=== PATIENT | male | born 1965 | race Caucasian/White ===

== ENCOUNTER → 2018-03-20 14:43 | Outpatient (CLI) | payer OTHER, SELFPAY ==
--- NOTE | 2018-03-20 14:50 | XR_ITS ---
XR foot LT min 3V HISTORY: Posttraumatic pain ITS.REASON: S/P TRAUMA TO LT FOOT ORDERING PHYSICIAN: Santi Chaves PATIENT AGE: 52 years COMPARISON: None FINDINGS: No fracture or dislocation. No lytic or blastic change. There is normal mineralization.. The joint spaces are well-preserved. No significant degenerative/arthritic changes. No erosive changes evident. IMPRESSION: Negative, no acute finding
== END ==
PROVIDERS: PCP Internal Medicine; Visit Provider Internal Medicine
DX: M79.672 Pain in left foot (principal)
CPT/HCPCS: 73630

== ENCOUNTER → 2018-03-23 11:13 | Outpatient (CLI) | payer OTHER, SELFPAY ==
--- NOTE | 2018-03-23 11:14 | XR_ITS ---
XR foot wt bearing LT 3V HISTORY: ITS.REASON: pain ORDERING PHYSICIAN: Keeley Solorio DPM PATIENT AGE: 52 years COMPARISON: 04/25/2012 FINDINGS: No fracture or dislocation. No lytic or blastic change. There is normal mineralization.. The joint spaces are well-preserved. No significant degenerative/arthritic changes. No erosive changes evident. IMPRESSION: Negative, no acute finding
--- NOTE | 2018-03-23 11:14 | XR_ITS ---
XR foot wt bearing RT 3V HISTORY: ITS.REASON: Pain ORDERING PHYSICIAN: Keeley Solorio DPM PATIENT AGE: 52 years COMPARISON: None FINDINGS: No fracture or dislocation. No lytic or blastic change. There is normal mineralization.. The joint spaces are well-preserved. No significant degenerative/arthritic changes. No erosive changes evident. IMPRESSION: Negative, no acute finding
== END ==
PROVIDERS: Visit Provider Podiatrist
DX: M79.671 Pain in right foot (principal); M79.672 Pain in left foot
CPT/HCPCS: 73630

== ENCOUNTER → 2018-04-20 10:44 | Outpatient (CLI) | payer OTHER, SELFPAY ==
--- NOTE | 2018-04-20 10:50 | MR_ITS ---
MR foot LT wo/w con HISTORY: Posttraumatic pain along the plantar surface and second metatarsal area with limited range of motion ITS.REASON: foot pain ORDERING PHYSICIAN: Keeley Solorio DPM PATIENT AGE: 52 years Comparison: 03/23/2018 TECHNIQUE: Standard multiplanar multiecho sequences are performed without and with gadolinium enhancement. FINDINGS: No obvious fracture or dislocation of the metatarsals. No bone marrow edema within the metatarsals. There is a faint linear hypointensity within the distal aspect of the proximal phalanx of the great toe which could represent nondisplaced fracture. Partial volume averaging artifact is also a consideration. Please correlate with physical exam. Signal alteration is present in the subcortical region of the calcaneus at the posterior subtalar joint region hypointense on T1 and hyperintense on T2. There is some cortical irregularity at this region. The joint spaces preserved with no significant bony spurring. The plantar aponeurosis has an unremarkable appearance with no evidence of plantar fasciitis. IMPRESSION: 1. Possible nondisplaced fracture of the distal aspect of the proximal phalanx of the great toe. Please correlate with physical exam as this could be due to partial volume averaging artifact 2. Abnormal signal intensity involving the calcaneus at the posterior subtalar joint with some cortical irregularity. May be related to an area of osteonecrosis/osteochondrosis dissecans. 3. No obvious ligamentous or tendinous injuries
== END ==
PROVIDERS: Family Provider Internal Medicine; PCP Internal Medicine; Visit Provider Podiatrist
DX: S93.622A Sprain of tarsometatarsal ligament of left foot, initial encounter (principal); S96.912A Strain of unspecified muscle and tendon at ankle and foot level, left foot, initial encounter; S99.922A Unspecified injury of left foot, initial encounter
CPT/HCPCS: 73720; A9576

== ENCOUNTER → 2019-02-26 10:26 | Outpatient (POV) | payer MEDICAID, SELFPAY | PROVIDERS: Visit Provider Otolaryngology | DX: Z00.00 Encounter for general adult medical examination without abnormal findings (principal) ==

== ENCOUNTER → 2019-03-05 08:52 | Outpatient (CLI) | payer MEDICAID, SELFPAY ==
--- NOTE | 2019-03-05 08:56 | CT_ITS ---
CT sinus wo con CLINICAL INDICATION: ITS.REASON: NASAL SEPTAL SPUR ORDERING PHYSICIAN: Janneth Roberto MD PATIENT AGE: 53 years COMPARISON: None TECHNIQUE:Axial images obtained with sagittal and coronal reformats. All CT scans at the facility use one or more dose reduction, viz: automated exposure control, ma/kV adjustment per patient size (including targeted exams where dose is matched to indication, i.e. head), or iterative reconstruction technique. FINDINGS: Paranasal sinuses appear to be normally developed and are clear except for very mild mucosal thickening along the roof of both maxillary sinuses. There are very small bilateral ethmoid Kevin's air cells which are new very mild narrowing of the infundibular areas. There is convex curvature toward the right involving the nasal septum of approximately 115 degrees with a right-sided septal spur measuring 6.2 mm extending from the septum to the lateral nasal cavity wall at the middle meatus. This narrows the right nasal cavity in this location. The remainder of the nasal terminates appear to be intact. Osseous structures are intact. Surrounding soft tissues appear normal. Impression: Minimal mucosal thickening along the roof of both maxillary sinuses. Very small ethmoid Kevin's air cells bilaterally with only mild infundibular narrowing. Subtle curvature with a right-sided septal spur as discussed above.
== END ==
PROVIDERS: PCP Internal Medicine; Visit Provider Otolaryngology
DX: J34.89 Other specified disorders of nose and nasal sinuses (principal)
CPT/HCPCS: 70486

== ENCOUNTER → 2019-04-02 11:10 | Outpatient (POV) | payer MEDICAID, SELFPAY | PROVIDERS: Visit Provider Otolaryngology | DX: Z00.00 Encounter for general adult medical examination without abnormal findings (principal) ==

== ENCOUNTER → 2019-08-12 15:32 | Outpatient (CLI) | payer OTHER, SELFPAY ==
--- NOTE | 2019-08-12 15:39 | XR_ITS ---
PROCEDURE: XR FOOT LT MIN 3V CLINICAL INDICATION: LT FOOT INJURY COMPARISON: No exams were available for comparison FINDINGS: No fracture or dislocation. No lytic or blastic change. There is normal mineralization. The joint spaces are well-preserved. No significant degenerative/arthritic changes. No erosive changes evident. There is mild diffuse soft tissue swelling of the forefoot dorsally. There are no foreign bodies. Other findings:None. IMPRESSION: Mild soft tissue injury, no fracture seen Dictated by: Dr. Jovani Richter MD 08/12/2019 16:[address] Jovani Richter MD in [place] 08/12/2019 16:04
== END ==
PROVIDERS: PCP Internal Medicine; Visit Provider Internal Medicine
DX: M79.672 Pain in left foot (principal)
CPT/HCPCS: 73630

== ENCOUNTER → 2019-08-28 11:18 | Outpatient (CLI) | payer OTHER, SELFPAY ==
--- NOTE | 2019-08-28 11:23 | XR_ITS ---
PROCEDURE: XR FOOT LT MIN 3V CLINICAL INDICATION: FOOT PAIN Dropped a tractor weight on foot 1st metatarsal pain COMPARISON: [id number] XR foot LT min 3V from 03/20/2018 [id number] XR foot wt bearing LT 3V from 03/23/2018 [id number] XR foot wt bearing RT 3V from 03/23/2018 XR FOOT LT MIN 3V from 08/12/2019 FINDINGS: There is a nondisplaced transverse type fracture through the 1st metatarsal. The joint spaces are well-preserved. No significant degenerative/arthritic changes. No erosive changes evident. Other findings:None. IMPRESSION: Nondisplaced fracture through mid shaft 1st metatarsal. Dictated by: Ramana Lopez 08/28/2019 11:39 Electronically signed by Ramana Lopez in [place] 08/28/2019 11:39
== END ==
PROVIDERS: PCP Internal Medicine; Visit Provider Internal Medicine
DX: S90.32XD Contusion of left foot, subsequent encounter (principal)
CPT/HCPCS: 73630

== ENCOUNTER → 2019-09-16 12:55 | Outpatient (CLI) | payer OTHER, SELFPAY ==
--- NOTE | 2019-09-16 13:10 | XR_ITS ---
PROCEDURE: XR FOOT WT BEARING LT 3V CLINICAL INDICATION: fracture follow up Follow-up fracture, pain COMPARISON: [id number] XR foot wt bearing LT 3V from 03/23/2018 [id number] XR foot wt bearing RT 3V from 03/23/2018 XR FOOT LT MIN 3V from 08/12/2019 XR FOOT LT MIN 3V from 08/28/2019 FINDINGS: There is a healing mid shaft fracture involving the 1st metatarsal with developing callus formation. Fracture is nondisplaced. No other significant anomalies. Other findings:None. IMPRESSION: Healing nondisplaced midshaft 1st metatarsal fracture Dictated by: Josiah Shirley MD 09/16/2019 14:50 Electronically signed by Josiah Shirley MD in [place] 09/16/2019 14:50
== END ==
PROVIDERS: PCP Internal Medicine; Visit Provider Podiatrist
DX: S92.315D Nondisplaced fracture of first metatarsal bone, left foot, subsequent encounter for fracture with routine healing (principal); T14.8XXA Other injury of unspecified body region, initial encounter
CPT/HCPCS: 73630

== ENCOUNTER → 2019-10-08 13:55 | Outpatient (CLI) | payer OTHER, SELFPAY ==
--- NOTE | 2019-10-08 14:17 | ECG_ITS ---
APPROVED REPORT Exam: Resting ECG HR:76 bpm ECG Measurements Heart Rate 76 AXES GA 142 P 62 QRSd 94 QRS 64 QT 374 T 31 QTc 420 <Conclusion> Normal sinus rhythm Normal ECG Electronically signed by : Zeyad Hendrix, 10/09/2019 16:11:40
[2019-10-08 14:21] LABS: Basophils # 0.1 K/mm3 (0-0.2); Basophils % 0.6 % (0.1-2.0); Eosinophils # 0.2 K/mm3 (0.0-0.4); Eosinophils % 2.7 % (0.1-12.0); Hematocrit 42.9 % (42.0-52.0); Hemoglobin 14.9 g/dL (14.1-18.0); Lymphocytes # 1.3 K/mm3 (0.7-4.5); Lymphocytes % 15.4 % (10-50); Mean Corpuscular HGB Conc 34.8 g/dL (31.8-35.4); Mean Corpuscular Hemoglobin 33.6 pg (27.0-31.2); Mean Corpuscular Volume 96.8 fl (80-94); Mean Platelet Volume 7.2 fl (7.4-10.4); Monocytes # 0.5 K/mm3 (0.1-1.0); Monocytes % 5.9 % (1.7-9.3); Neutrophils # 6.3 K/mm3 (1.8-7.8); Neutrophils % 75.6 % (37.0-80.0); Platelet Count 237 K/mm3 (142-424); Red Blood Count 4.44 M/mm3 (4.60-6.20); Red Cell Distribution Width 12.4 % (11.5-17.5); White Blood Count 8.4 K/mm3 (4.8-10.8)
[2019-10-08 15:36] LABS: Anion Gap 12.9 mEq/L (5-15); Blood Urea Nitrogen 15 mg/dl (9-20); Calcium 9.8 mg/dl (8.4-10.2); Carbon Dioxide 23 mmol/L (22.0-30.0); Chloride 102 mmol/L (98-107); Estimated Glomerular Filt Rate 117 ml/min (>60); GFR (African American) 141 ML/MIN (>60); Glucose 105 mg/dl (74-100); Potassium 3.9 mmoL/L (3.5-5.1); Sodium 134 mmol/L (136-145)
== END ==
PROVIDERS: Visit Provider Otolaryngology
DX: Z01.818 Encounter for other preprocedural examination (principal); J34.2 Deviated nasal septum; J34.89 Other specified disorders of nose and nasal sinuses; M95.0 Acquired deformity of nose
CPT/HCPCS: 36415; 80048; 85025; 93005

== ENCOUNTER → 2019-10-17 10:45 | Outpatient (CLI) | payer OTHER, SELFPAY ==
--- NOTE | 2019-10-17 10:51 | XR_ITS ---
PROCEDURE: XR FOOT WT BEARING LT 3V CLINICAL INDICATION: fracture follow-up Follow-up fracture COMPARISON: [id number] XR foot wt bearing LT 3V from 03/23/2018 XR FOOT LT MIN 3V from 08/12/2019 XR FOOT LT MIN 3V from 08/28/2019 XR FOOT WT BEARING LT 3V from 09/16/2019 FINDINGS: No change nondisplaced fracture involving the mid shaft of the 1st metatarsal with developing callus formation which may have slightly increased. The joint spaces are well-preserved. No significant degenerative/arthritic changes. No erosive changes evident. Other findings:Osteopenia is present at the 1st MTP joint IMPRESSION: Healing left 1st metatarsal fracture with slight increase in callus formation Dictated by: Josiah Shirley MD 10/17/2019 16:04 Electronically signed by Josiah Shirley MD in [place] 10/17/2019 16:04
== END ==
PROVIDERS: PCP Internal Medicine; Visit Provider Podiatrist
DX: S92.315D Nondisplaced fracture of first metatarsal bone, left foot, subsequent encounter for fracture with routine healing (principal)
CPT/HCPCS: 73630

== ENCOUNTER → 2022-04-25 13:11 | Outpatient (CLI) | payer OTHER, SELFPAY ==
--- NOTE | 2022-04-25 13:16 | XR_ITS ---
FINAL REPORT CLINICAL HISTORY: COUGH, former smoker FINDINGS: Two views of the chest were obtained. The heart size and pulmonary vascularity are within normal limits. The mediastinum is normal. There is medial right lung base opacity. There is no pneumothorax. The bony thorax is intact. IMPRESSION: Medial right base opacity could represent atelectasis or pneumonia. Reviewed, Interpreted and Dictated by Eric Oliva III, MD Transcribed by Placido Loaiza Authenticated and [facility]
== END ==
PROVIDERS: PCP Internal Medicine; Visit Provider Internal Medicine
DX: R05.8 Other specified cough (principal)
CPT/HCPCS: 71046

== ENCOUNTER → 2022-05-20 13:25 | Outpatient (CLI) | payer OTHER, SELFPAY ==
[2022-05-20 14:51] LABS: Basophils # 0.1 K/mm3 (0-0.2); Basophils % 1.1 % (0.1-2.0); Eosinophils # 0.2 K/mm3 (0.0-0.4); Eosinophils % 2.7 % (0.1-12.0); Hematocrit 42.6 % (42.0-52.0); Hemoglobin 14.5 g/dL (14.1-18.0); Lymphocytes # 1.3 K/mm3 (0.7-4.5); Lymphocytes % 17.5 % (10-50); Mean Corpuscular HGB Conc 33.9 g/dL (31.8-35.4); Mean Corpuscular Hemoglobin 33.1 pg (27.0-31.2); Mean Corpuscular Volume 97.7 fl (80-94); Mean Platelet Volume 8.1 fl (7.4-10.4); Monocytes # 0.6 K/mm3 (0.1-1.0); Monocytes % 8.4 % (1.7-9.3); Neutrophils # 5.1 K/mm3 (1.8-7.8); Neutrophils % 70.3 % (37.0-80.0); Platelet Count 524 K/mm3 (142-424); Red Blood Count 4.36 M/mm3 (4.60-6.20); Red Cell Distribution Width 12.8 % (11.5-17.5); White Blood Count 7.2 K/mm3 (4.8-10.8)
[2022-05-20 15:12] LABS: Chloride 106 mmol/L (98-107)
[2022-05-20 15:13] LABS: Potassium 4.6 mmoL/L (3.5-5.1); Sodium 141 mmol/L (136-145)
[2022-05-20 15:15] LABS: Alanine Aminotransferase 25 U/L (12-78); Alkaline Phosphatase 58 U/L (38-126); Anion Gap 12.6 mEq/L (5-15); Aspartate Amino Transferase 41 U/L (17-59); Bilirubin,Total 0.3 mg/dl (0.2-1.3); Blood Urea Nitrogen 13 mg/dl (9-20); Carbon Dioxide 27 mmol/L (22.0-30.0); Cholesterol 187 mg/dl (140-200); Estimated Glomerular Filt Rate 138 ml/min (>60); GFR (African American) 167 ML/MIN (>60); Glucose 86 mg/dl (74-100); Triglycerides 125 mg/dl (30-150); VLDL Cholesterol 25 mg/dL (0-40)
[2022-05-20 15:16] LABS: Albumin Level 3.7 g/dl (3.5-5.0); Albumin/Globulin Ratio 1.4 (1.1-1.8); Chol/HDL Ratio 6.2 (1-3.5); Globulin 2.7 g/dL (1.3-3.2); HDL Cholesterol 30 mg/dl (40-60); Total Protein,Serum 6.4 g/dl (6.3-8.2)
[2022-05-20 15:27] LABS: Direct LDL Cholesterol 119.65 mg/dL (100-129)
[2022-05-20 16:27] LABS: Uric Acid 5.5 mg/dl (3.5-8.5)
[2022-05-20 16:59] LABS: Prostate Specific Ag Screen 2.4 ng/ml (0.0-4.0)
== END ==
PROVIDERS: PCP Internal Medicine; Visit Provider Internal Medicine
DX: R06.02 Shortness of breath (principal); E78.5 Hyperlipidemia, unspecified; M10.9 Gout, unspecified; Z85.71 Personal history of Hodgkin lymphoma; Z12.5 Encounter for screening for malignant neoplasm of prostate
CPT/HCPCS: 36415; 80053; 80061; 84550; 85025; G0103

== ENCOUNTER → 2022-06-01 11:11 | Outpatient (CLI) | payer OTHER, SELFPAY ==
--- NOTE | 2022-06-01 11:16 | XR_ITS ---
PROCEDURE INFORMATION: Exam: XR Chest Exam date and time: 06/01/2022 11:19 AM Age: 56 years old Clinical indication: Other: F/u pneumonia, recent covid; Additional info: Pneumonia follow up/recent covid TECHNIQUE: Imaging protocol: Radiologic exam of the chest. Views: 2 views. COMPARISON: CR XR CHEST 2V 04/25/2022 1:23 PM FINDINGS: Lungs: Persistent right lower lobe airspace disease, similar to slightly worsened from 04/25/2022. Pleural spaces: Unremarkable. No pleural effusion. No pneumothorax. Heart/Mediastinum: Unremarkable. No cardiomegaly. Bones/joints: Unremarkable. IMPRESSION: Persistent right lower lobe airspace disease, similar to slightly worsened from 04/25/2022. Given persistence over this length of time, chest CT is recommended for further evaluation.
== END ==
PROVIDERS: PCP Internal Medicine; Visit Provider Internal Medicine
DX: J18.9 Pneumonia, unspecified organism (principal); U09.9 Post COVID-19 condition, unspecified
CPT/HCPCS: 71046

== ENCOUNTER → 2022-06-23 13:20 | Outpatient (CLI) | payer OTHER, SELFPAY ==
--- NOTE | 2022-06-23 13:23 | CT_ITS ---
FINAL REPORT CLINICAL HISTORY: COVID 19 X 6 WKS AGO, PNEUMONIA FINDINGS: Axial images were obtained from the lung apex to the mid abdomen by computed tomography. Coronal reformatted images were obtained. This study was performed with techniques to keep radiation doses as low as reasonably achievable, (ALARA). Individualized dose reduction techniques using automated exposure control or adjustment of mA and/or kV according to the patient's size were employed. There is no axillary adenopathy. There is a calcified right paratracheal lymph node. Heart size is normal. There is no pericardial or pleural effusion. Limited images of the upper abdomen are unremarkable. There is patchy airspace opacity in the anterior left upper lobe. There is dense consolidation in the medial right lower lobe. IMPRESSION: Dense medial right lower lobe consolidation consistent with acute pneumonia probably related to known COVID. Reviewed, Interpreted and Dictated by West Shanks MD Transcribed by Placido Loaiza Authenticated and [facility]
== END ==
PROVIDERS: PCP Internal Medicine; Visit Provider Internal Medicine
DX: U09.9 Post COVID-19 condition, unspecified (principal)
CPT/HCPCS: 71250

== ENCOUNTER → 2022-07-21 14:27 | Outpatient (CLI) | payer OTHER, SELFPAY ==
[2022-07-23 20:40] LABS: QuantiFERON-TB Gold Plus Negative (Negative)
[2022-07-27 22:12] LABS: Aspergillus flavus Negative (Neg:<1:1); Aspergillus fumigatus Negative (Neg:<1:1); Aspergillus niger Negative (Neg:<1:1); Blastomyces Antibody Negative (Neg:<1:1)
== END ==
PROVIDERS: PCP Internal Medicine; Visit Provider Internal Medicine Pulmonary Disease
DX: R06.09 Other forms of dyspnea (principal); J84.10 Pulmonary fibrosis, unspecified; R91.8 Other nonspecific abnormal finding of lung field
CPT/HCPCS: 36415; 86140; 86480; 86606; 86612

== ENCOUNTER → 2022-07-22 10:10 | Outpatient (CLI) | payer OTHER, SELFPAY | PROVIDERS: PCP Internal Medicine; Visit Provider Internal Medicine Pulmonary Disease | DX: J18.9 Pneumonia, unspecified organism (principal); B96.89 Other specified bacterial agents as the cause of diseases classified elsewhere | CPT/HCPCS: 87070; 87077; 87116; 87186; 87205; 87206; 87220 ==

== ENCOUNTER → 2022-08-08 13:02 | Outpatient (CLI) | payer OTHER, SELFPAY | PROVIDERS: PCP Internal Medicine; Visit Provider Internal Medicine Pulmonary Disease | DX: R06.09 Other forms of dyspnea (principal) | CPT/HCPCS: 94060; 94618; 94727; 94729 ==

== ENCOUNTER → 2022-10-04 15:13 | Outpatient (CLI) | payer OTHER, SELFPAY ==
--- NOTE | 2022-10-04 15:13 | CT_ITS ---
FINAL REPORT CLINICAL HISTORY: lung cancer screening, smoker for 27 years less than a pack a day COMPARISON: 06/23/2022 FINDINGS: Low-Dose Chest CT Axial images were obtained from the lung apex to the mid abdomen by computed tomography. Low-dose protocol was utilized. CTDI vol (mGy): 2.90 DLP (mGy-cm): 101.07 There is no axillary adenopathy. There is no hilar or mediastinal adenopathy. The heart is proper size. There is no pericardial or pleural effusion. Lung window images demonstrate persistent widespread pulmonary opacities consistent bilateral pneumonia. Much of it is stable however there is an area in the left lower lobe which is worse. There is a large area of consolidation in the right lower lobe. There is mild pulmonary scarring. Limited images of the upper abdomen are unremarkable. IMPRESSION: Widespread pulmonary opacities that are most likely inflammatory. Lung RADS category 0. Recommend 3 month follow-up low-dose chest CT. Reviewed, Interpreted and Dictated by Eric Oliva III, MD Transcribed by Anisha Niño Authenticated and [facility]
== END ==
PROVIDERS: PCP Internal Medicine; Visit Provider Internal Medicine Pulmonary Disease
DX: Z87.891 Personal history of nicotine dependence (principal); Z12.2 Encounter for screening for malignant neoplasm of respiratory organs
CPT/HCPCS: 71271

== ENCOUNTER 2022-10-10 09:05 | Day surgery (SDC) | payer OTHER, SELFPAY ==
[2022-10-10] VITALS (11 sets, daily range): BP systolic 123–164; BP diastolic 65–98; PULSE 83–100; RESP 14–18; TEMP 36.3–36.8; O2SAT 90–95; BMI 20.7
--- NOTE | 2022-10-10 10:22 | P.PN_ITS ---
[facility] Disclaimer: The information contained in this section may have been updated after the patient was seen, as this information can be updated by other users. Medical History (Updated 10/10/22 @ 09:26 by Clifton Lu RN) Allergic rhinitis Anxiety Atypical pneumonia Dyspnea on exertion History of 2019 novel coronavirus disease (COVID-19) History of smoking 30 or more pack years Hodgkins disease IBS (irritable bowel syndrome) ILD (interstitial lung disease) Legionella infection Multiple lung nodules on CT Multiple lung nodules on CT Pneumonia Pulmonary emphysema Restrictive lung disease Screening for lung cancer Unresolved pneumonia Surgical History (Updated 10/10/22 @ 09:25 by Clifton Lu RN) H/O nasal septoplasty Hx of lymph node excision Hx of wisdom tooth extraction Family History Other COPD (chronic obstructive pulmonary disease) Emphysema of lung Social History (Updated 10/10/22 @ 09:27 by Clifton Lu RN) Smoking Status: Former smoker smoking status stop date: 2009 second hand exposure: No alcohol intake: never substance use type: denies use current occupational status: employed Travel in the last 8 weeks: None household members: spouse housing: house current occupation: pet store current occupational exposures/hazards: No caffeine: Yes [facility] Anesthesia Checklist Patient Identification Patient Identification: Verbal (Name & ) Structural Data Admitted From: Home Planned Operative Procedure/s: bronchoscopy Consent for Planned Operative Procedure(s) Verified: Yes NPO Status Verified Time NPO: 00:00 Additional verifications Anesthesia Reactions: No Hx Blood Transfusions: Yes Blood Transfusion Reaction: No Airway Assessment C-Spine Mobility Assessed: Yes TMJ Mobility Assessed: Yes Dentition: Good Dentition Neurological Assessment Level of Consciousness: Awake, Alert and Appropriate Anesthesia Plan Anesthesia Risk discussed: Yes Anesthesia Plan: Verified ASA Class: III Anesthesia Type: General
--- NOTE | 2022-10-10 12:42 | P.PCN_ITS ---
Procedure: Date: 10/10/22 Patient Date of :: 1965 Procedure Performed:: Bronchoscopy with airway examination, bronchoalveolar lavage and transbronchial lung biopsy Indications:: Nonresolving pneumonia Performing Provider:: Benny Rosado MD Referring Provider:: Dr:Santi Flores MD Sedation:: General anesthesia Procedure:: Bronchoscopy airway examination, bronchoalveolar lavage and transbronchial lung biopsy: A clean DIAGNOSTIC bronchoscopy was advanced through the ET tube and airways were examined up to subsegmental bronchi. Airways appeared grossly normal, no evidence of mucoid secretions, mucous plugging active bleeding/old blood clots noted. Questionable endobronchial lesion was noted at left upper lobe bronchi concerning for pulsating mass no biopsies were attempted. Bronchoalveolar lavage was performed in the RIGHT LOWER LOBE with instillation of 60 cc normal saline with return of turbid non-bloody 30 cc fluid back. BAL fluid was sent for cell count and differential along with bacterial fungal and AFB stain and cultures. Bronchoalveolar lavage was also performed in the LEFT UPPER LOBE with instillation of 60 cc normal saline with return of 35 cc turbid non-bloody fluid back. BAL fluid was sent for cell count and differential along with bacterial fungal and AFB stain and cultures. Both the right lower lobe and left upper lobe lavage specimens were sent separately. BAL fluid were also sent for cytopathologic examination separately. Transbronchial biopsy was performed in the LEFT UPPER LOBE with a total of 8 biopsies performed, 6 biopsy specimens were sent in formalin for cytopathologic examination. The other 2 biopsy samples, were sent one each in two separate normal saline specimen cups for bacterial fungal and AFB stain cultures. Speci al request was also made for the pathologist to evaluate for AFB and fungal organisms on the cytopathologic examination. Patient tolerated the procedure with no acute immediate complications. We will follow the patient in pulmonary clinic in 7 to 10 days. Findings:: Please see the procedure note Recommendations:: Please see the procedure note. Follow in pulmonary clinic in 7 to 10 days Complications:: No acute immediate complications. Chest x-ray pending. Estimated blood obtained (mL): 5
--- NOTE | 2022-10-10 12:47 | P.PNANES_ITS ---
[facility] Anesthesia Record Part I Anesthesia Record I Intake, IV Amount: 500 Estimated blood loss (mL): 10 Urine output (mL): 0 Blood Pressure: 123/70 SaO2: 92 Pulse Rate: 86 Respiratory Rate: 14 Temperature: 97.4 F Patient is:: Drowsy, Nasal O2 and Stable Stable to PACU at:: 12:43
--- NOTE | 2022-10-10 12:51 | XR_ITS ---
FINAL REPORT CLINICAL HISTORY: BRONCH IN OR, ft 4:36 FINDINGS: FLUORO TIME PROCEDURE: Fluoroscopy in the operating room. FINDINGS: Fluoroscopy time was provided by the radiology department for the clinical service. No films were saved. Fluoroscopy exposure time: 4:36 minutes IMPRESSION: See above Reviewed, Interpreted and Dictated by Leslie Raya MD Transcribed by Anisha Niño Authenticated and [facility]
--- NOTE | 2022-10-10 13:00 | XR_ITS ---
FINAL REPORT TECHNIQUE: Single view chest CLINICAL HISTORY: POST BRONCH COMPARISON: 06/01/2022 FINDINGS: A single view of the chest was obtained. The heart and mediastinum are within normal limits. There is new, patchy opacity in the right lung. Right infrahilar opacity is unchanged. There is no pneumothorax following bronchoscopy. Osseous structures are unremarkable. IMPRESSION: New, patchy right lung opacity. No pneumothorax following bronchoscopy. Reviewed, Interpreted and Dictated by Leslie Raya MD Transcribed by Areli Shepard Authenticated and [facility]
--- NOTE | 2022-10-10 13:57 | EXP.ANES.II ---
[facility] Anesthesia Record Part II Anesthesia Record Part II Discharge Time: 13:10 Destination: Surgical Day Care (OP Surgery) PACU nurse assessment reviewed?: Yes Patient Condition:: Good Anesthesia Complications:: None Swallowing reflex intact?: Yes Cyanosis?: No Blood Pressure: 164/65 Pulse Rate: 100 Temperature: 98 F Mental Status: Alert & Oriented Pain level:: 0 Nausea and/or vomitting:: None Intake, IV Amount: 0
== END 2022-10-10 14:05 | disposition home or self-care (01) ==
PROVIDERS: PCP Internal Medicine; Visit Provider Internal Medicine Pulmonary Disease
PROC: (CPT 31624; principal; 2022-10-10 10:15)
DX: J18.9 Pneumonia, unspecified organism (principal); Z86.16 Personal history of COVID-19; R91.8 Other nonspecific abnormal finding of lung field; Z87.891 Personal history of nicotine dependence; Z85.72 Personal history of non-Hodgkin lymphomas; J43.8 Other emphysema; J84.89 Other specified interstitial pulmonary diseases; Z79.899 Other long term (current) drug therapy; D49.1 Neoplasm of unspecified behavior of respiratory system
CPT/HCPCS: 31624; 31628; 71045; 76000; 87070; 87102; 87116; 87186; 87205; 87206; 89051; J2405

== ENCOUNTER → 2022-10-17 14:48 | Outpatient (CLI) | payer OTHER, SELFPAY ==
--- NOTE | 2022-10-17 14:55 | XR_ITS ---
FINAL REPORT CLINICAL HISTORY: interstitial lung disease COMPARISON: 10/10/2022 FINDINGS: Two views of the chest were obtained. The heart size and pulmonary vascularity are within normal limits. The mediastinum is normal. Worsening bilateral pulmonary opacities are consistent with worsening pneumonia. There is no pneumothorax. The bony thorax is intact. IMPRESSION: Worsening bilateral pneumonia. Reviewed, Interpreted and Dictated by Eric Oliva III, MD Transcribed by Alexia Dial Authenticated and . [facility]
[2022-10-17 16:19] LABS: Erythrocyte Sedimentation Rate 29 mm/hr (0-20)
[2022-10-17 16:23] LABS: Uric Acid 7.9 mg/dl (3.5-8.5)
[2022-10-17 16:28] LABS: C-Reactive Protein 13.2 mg/L (0-4)
[2022-10-19 08:15] LABS: RA Latex Turbid. <10.0 IU/mL (<14.0)
[2022-10-19 13:12] LABS: Anti-Cyclic Citrullinated Pept 5 units (0-19); Antinuclear Antibodies, IFA Negative (.)
[2022-10-19 16:14] LABS: Anti-DNA (DS) Ab Qn 1 IU/mL (0-9); Anti-Jo-1 <0.2 AI (0.0-0.9); Antiscleroderma-70 Antibodies <0.2 AI (0.0-0.9); Cytoplasmic (C-ANCA) <1:20 titer (Neg:<1:20); Perinuclear (P-ANCA) <1:20 titer (Neg:<1:20); Sjogren's Anti-SS-A <0.2 AI (0.0-0.9); Sjogren's Anti-SS-B 0.7 AI (0.0-0.9); Smith/RNP Antibodies <0.2 AI (0.0-0.9)
[2022-10-20 15:04] LABS: Strongyloides IgG Antibody Negative (Negative)
[2022-10-22 02:25] LABS: Antinuclear Antibodies (ANA) Negative
[2022-11-03 23:17] LABS: Aspergillus fumigatus IgG NEGATIVE; Pigeon Serum Abs NEGATIVE
== END ==
PROVIDERS: PCP Internal Medicine; Visit Provider Internal Medicine Pulmonary Disease
DX: R06.09 Other forms of dyspnea (principal); R06.02 Shortness of breath; J84.9 Interstitial pulmonary disease, unspecified; J84.10 Pulmonary fibrosis, unspecified; D72.19 Other eosinophilia
CPT/HCPCS: 36415; 71046; 84550; 85651; 86038; 86140; 86200; 86225; 86235; 86256; 86331; 86431; 86602; 86606; 86609; 86682

== ENCOUNTER → 2022-11-01 11:32 | Outpatient (CLI) | payer OTHER, SELFPAY ==
--- NOTE | 2022-11-01 11:36 | XR_ITS ---
FINAL REPORT TECHNIQUE: Chest PA & Lateral CLINICAL HISTORY: PNM COMPARISON: October 17, 2022 FINDINGS: 2 views of the chest were performed. The heart size is normal. The mediastinum is within normal limits. There are bibasilar airspace infiltrates, left greater than right. There are no pleural effusions. There is no pneumothorax. The bony thorax appears intact. IMPRESSION: Bibasilar airspace infiltrates similar to slightly improved. Findings may represent slow resolving pneumonia. Recommend follow-up. Reviewed, Interpreted and Dictated by West Shanks MD Transcribed by Placido Loaiza Authenticated and [facility]
== END ==
PROVIDERS: PCP Internal Medicine; Visit Provider Internal Medicine Pulmonary Disease
DX: R06.02 Shortness of breath (principal)
CPT/HCPCS: 71046

== ENCOUNTER → 2022-11-30 14:51 | Outpatient (CLI) | payer OTHER, SELFPAY ==
--- NOTE | 2022-11-30 14:56 | XR_ITS ---
FINAL REPORT CLINICAL HISTORY: PNM COMPARISON: 11/01/2022 FINDINGS: Two views of the chest were obtained. The heart size and pulmonary vascularity are within normal limits. The mediastinum is normal. There are persistent bibasilar opacities consistent with bilateral pneumonia. There is no pneumothorax. The bony thorax is intact. IMPRESSION: Persistent bibasilar opacities consistent with bilateral pneumonia. These findings have progressed on the left since the prior exam. Reviewed, Interpreted and Dictated by Eric Oliva III, MD Transcribed by Anisha Niño Authenticated and . [facility]
== END ==
LOC: RAD 14:52
PROVIDERS: PCP Internal Medicine; Visit Provider Internal Medicine Pulmonary Disease
DX: R06.02 Shortness of breath (principal)
CPT/HCPCS: 71046

== ENCOUNTER → 2022-12-29 15:02 | Outpatient (CLI) | payer OTHER, SELFPAY ==
--- NOTE | 2022-12-29 15:03 | CT_ITS ---
FINAL REPORT TECHNIQUE: Axial CT images were performed from the lung apices through the upper abdomen. Coronal reformats were submitted. This study was performed with techniques to keep radiation doses as low as reasonably achievable (ALARA). Individualized dose reduction techniques using automated exposure control or adjustment of mA and/or kV according to the patient's size were employed. CLINICAL HISTORY: 3 mth F/U COMPARISON: 10/04/2022 FINDINGS: There is no axillary adenopathy. There is no hilar or mediastinal mass or adenopathy. Heart size is normal. There is no pericardial or pleural effusion. Limited images of the upper abdomen are unremarkable. There are worsening widespread pulmonary nodular and parenchymal opacities. There is right lower lobe consolidation, progressed somewhat since previous. Findings most likely represent infectious etiology, may represent mycobacterial/fungal diseases. IMPRESSION: Worsening pulmonary opacities and right lower lobe consolidation, most likely represent infectious etiology as detailed above. Reviewed, Interpreted and Dictated by Eric Oliva III, MD Transcribed by Delmy Barrera Authenticated and [facility]
== END ==
LOC: RAD 15:03
PROVIDERS: PCP Internal Medicine Pulmonary Disease; Visit Provider Internal Medicine Pulmonary Disease
DX: R91.8 Other nonspecific abnormal finding of lung field (principal)
CPT/HCPCS: 71250

== ENCOUNTER → 2023-01-06 10:14 | Outpatient (CLI) | payer OTHER, SELFPAY | LOC: LAB.DROPOF 10:17 | PROVIDERS: PCP Internal Medicine Pulmonary Disease; Visit Provider Internal Medicine Pulmonary Disease | DX: R06.09 Other forms of dyspnea (principal); R05.9 Cough, unspecified; R09.89 Other specified symptoms and signs involving the circulatory and respiratory systems | CPT/HCPCS: 87070; 87205 ==

== ENCOUNTER → 2023-01-07 12:38 | Outpatient (CLI) | payer OTHER, SELFPAY | LOC: LAB 12:40 | PROVIDERS: PCP Internal Medicine; Visit Provider Internal Medicine Pulmonary Disease | DX: R06.09 Other forms of dyspnea (principal); J84.9 Interstitial pulmonary disease, unspecified; R91.8 Other nonspecific abnormal finding of lung field; Z86.16 Personal history of COVID-19 | CPT/HCPCS: 87102; 87116; 87186; 87206 ==

== ENCOUNTER → 2023-01-08 15:32 | Outpatient (CLI) | payer OTHER, SELFPAY | PROVIDERS: PCP Internal Medicine Pulmonary Disease; Visit Provider Internal Medicine Pulmonary Disease | DX: R06.09 Other forms of dyspnea (principal); R05.9 Cough, unspecified ==

== ENCOUNTER → 2023-01-11 11:56 | Outpatient (CLI) | payer OTHER, SELFPAY ==
--- NOTE | 2023-01-11 12:03 | ECG_ITS ---
APPROVED REPORT Exam: Resting ECG HR:93 bpm ECG Measurements Heart Rate 93 AXES UT 130 P 40 QRSd 87 QRS 22 QT 325 T 9 QTc 376 Conclusion SINUS RHYTHM NORMAL ECG UNCONFIRMED REPORT Electronically signed by : Zeyad Hendrix MD 01/11/2023 17:32:47
== END ==
LOC: RT 11:57
PROVIDERS: PCP Internal Medicine; Visit Provider Internal Medicine Pulmonary Disease
DX: R06.09 Other forms of dyspnea (principal)
CPT/HCPCS: 93005

== ENCOUNTER 2023-01-23 10:01 | Day surgery (SDC) | payer OTHER, SELFPAY ==
[2023-01-19 14:47] VITALS: BMI 21.6
[2023-01-23] VITALS (12 sets, daily range): BP systolic 106–129; BP diastolic 61–80; PULSE 105–126; RESP 16–24; TEMP 36.1–43; O2SAT 91–94
[2023-01-23 10:54] LABS: Basophils # 0.1 K/mm3 (0-0.2); Basophils % 0.5 % (0.1-2.0); Eosinophils # 0.4 K/mm3 (0.0-0.4); Eosinophils % 3.2 % (0.1-12.0); Hematocrit 48.3 % (42.0-52.0); Hemoglobin 15.5 g/dL (14.1-18.0); Lymphocytes # 1.1 K/mm3 (0.7-4.5); Lymphocytes % 9.5 % (10-50); Mean Corpuscular HGB Conc 32.1 g/dL (31.8-35.4); Mean Corpuscular Hemoglobin 33.1 pg (27.0-31.2); Mean Platelet Volume 7.6 fl (7.4-10.4); Monocytes # 0.6 K/mm3 (0.1-1.0); Monocytes % 5.6 % (1.7-9.3); Neutrophils # 9.1 K/mm3 (1.8-7.8); Neutrophils % 81.4 % (37.0-80.0); Platelet Count 469 K/mm3 (142-424); Red Blood Count 4.69 M/mm3 (4.60-6.20); Red Cell Distribution Width 13.4 % (11.5-17.5); White Blood Count 11.1 K/mm3 (4.8-10.8)
[2023-01-23 10:58] LABS: Chloride 104 mmol/L (98-107); Potassium 4.3 mmoL/L (3.5-5.1); Sodium 138 mmol/L (136-145)
[2023-01-23 11:01] LABS: Blood Urea Nitrogen 11 mg/dl (9-20); Creatinine Clearance Estimated 99 mL/min (50-200); Estimated Glomerular Filt Rate 99 ml/min (>60); GFR (African American) 120 ML/MIN (>60)
[2023-01-23 11:02] LABS: Anion Gap 17.3 mEq/L (5-15); Calcium 9.3 mg/dl (8.4-10.2); Carbon Dioxide 21 mmol/L (22.0-30.0); Glucose 98 mg/dl (74-100)
--- NOTE | 2023-01-23 11:02 | P.PN_ITS ---
[facility] Disclaimer: The information contained in this section may have been updated after the patient was seen, as this information can be updated by other users. Medical History Abnormal computerized axial tomography of chest Allergic rhinitis Anxiety Atypical pneumonia Dyspnea on exertion History of 2019 novel coronavirus disease (COVID-19) History of smoking 30 or more pack years Hodgkins disease IBS (irritable bowel syndrome) ILD (interstitial lung disease) ILD (interstitial lung disease) Immunosuppressed status Legionella infection Multiple lung nodules on CT Multiple lung nodules on CT Pneumonia Pulmonary emphysema Restrictive lung disease Screening for lung cancer Unresolved pneumonia Surgical History H/O nasal septoplasty Hx of lymph node excision Hx of wisdom tooth extraction Family History Other COPD (chronic obstructive pulmonary disease) Emphysema of lung Social History Smoking Status: Former smoker smoking status stop date: 2009 second hand exposure: No alcohol intake: never substance use type: denies use current occupational status: employed Travel in the last 8 weeks: None household members: spouse housing: house current occupation: pet store current occupational exposures/hazards: No caffeine: Yes [facility] Anesthesia Checklist Patient Identification Patient Identification: Arm Band Structural Data Admitted From: Home Planned Operative Procedure/s: Bronchoscopy with Transbronchial Biopsy Consent for Planned Operative Procedure(s) Verified: Yes Verified Documents: Surgical Consent and History and Physical NPO Status Verified Time NPO: 00:00 Additional verifications Anesthesia Reactions: No Hx Blood Transfusions: Yes Blood Transfusion Reaction: No Airway Assessment C-Spine Mobility Assessed: Yes TMJ Mobility Assessed: Yes Dentition: Good Dentition Neurological Assessment Level of Consciousness: Awake and Alert Anesthesia Plan Anesthesia Risk discussed: Yes Anesthesia Plan: Verified ASA Class: III Anesthesia Type: General
--- NOTE | 2023-01-23 12:30 | XR_ITS ---
FINAL REPORT CLINICAL HISTORY: BRONCHOSCOPY WITH BX. fluoro time: 3.08 FINDINGS: Fluoroscopy Three spot films were obtained. 3.08 minutes of fluoroscopy time was utilized. IMPRESSION: Fluoroscopy as above. Reviewed, Interpreted and Dictated by Eric Oliva III, MD Transcribed by Delmy Barrera Authenticated and [facility]
--- NOTE | 2023-01-23 12:46 | EXP.BRONCH.N ---
Procedure: Date: 01/23/23 Patient Date of :: 1965 Procedure Performed:: Bronchoscopy airway examination, bronchoalveolar lavage and transbronchial lung biopsy Indications:: Nonresolving pneumonia Performing Provider:: Benny Rosado MD Referring Provider:: Dr:Santi Flores MD Sedation:: General anesthesia Procedure:: Bronchoscopy airway examination, bronchoalveolar lavage and transbronchial lung biopsy: A clean DIAGNOSTIC bronchoscopy was advanced through the ET tube and airways were examined up to subsegmental bronchi. Airways appeared grossly normal, mucous plugging active bleeding/old blood clots noted. Copious amount of thin mucoid secretions were noted on bilateral airways suctioned Bronchoalveolar lavage was performed in the RIGHT LOWER LOBE with instillation of 60 cc normal saline with return of 30 cc blood tinged back. Bronchoalveolar lavage were also performed in the LEFT LINGULA with instillation of 60 cc normal saline with return of 25 cc cloudy fluid back. BAL fluid from both right lower lobe and left lingula were sent separately for cell count and differential along with bacterial fungal and AFB stain and cultures. Transbronchial biopsy was performed in the RIGHT LOWER LOBE with a total of 10 biopsies performed, 6 biopsy specimens were sent in formalin for cytopathologic examination. The other 4 biopsy samples, were sent one each in two separate normal saline specimen cups for bacterial fungal and AFB stain cultures. Special request was also made for the pathologist to evaluate for AFB and fungal organisms on the cytopathologic examination. Patient experienced bleeding with the biopsy. Hemostasis obtained by holding pressure and instilling cold saline with diagnstic bronchoscopy. The diagnostic bronchoscopy was exchanged with a THEREPEAUTIC bronchoscopy to achieve Hemostasis and to facilitate suctioning blood clots. Patient experienced adequate hemostasis by the end of the procedure. Patient tolerated the procedure with no immediate acute complications. We will follow the patient in pulmonary clinic in 7 to 10 days. Findings:: Please see the procedure note Recommendations:: Postoperative bronchoscopy instructions Follow in pulmonary clinic in 5 to 10 days Complications:: No acute immediate complications Estimated blood obtained (mL): 15
--- NOTE | 2023-01-23 12:46 | EXP.ANES.I ---
[facility] Anesthesia Record Part I Anesthesia Record I Intake, IV Amount: 700 Estimated blood loss (mL): 10 Urine output (mL): 0 Blood Pressure: 123/77 SaO2: 92 Pulse Rate: 126 Respiratory Rate: 24 Temperature: 97.3 F Patient is:: Awake Stable to PACU at:: 12:47
--- NOTE | 2023-01-23 12:51 | XR_ITS ---
FINAL REPORT TECHNIQUE: Single view chest CLINICAL HISTORY: Post op-- bronch COMPARISON: 12/29/2022 FINDINGS: A single view of the chest was obtained. The heart and mediastinum are within normal limits. There are worsening bilateral pulmonary opacities likely representing worsening pneumonia. There is no pneumothorax. Osseous structures are unremarkable. IMPRESSION: No acute cardiopulmonary process. Reviewed, Interpreted and Dictated by Eric Oliva III, MD Transcribed by Areli Shepard Authenticated and [facility]
--- NOTE | 2023-01-23 13:48 | SUR.PHASEII ---
pt states he did not bring his home oxygen because its a short drive. pt states when he is at home his o2 is 88-90% on 2lnc. currently patient is 0% on 2LNC with no complaints.
--- NOTE | 2023-01-24 07:21 | P.PNANES_ITS ---
[facility] Anesthesia Record Part II Anesthesia Record Part II Discharge Time: 13:17 Destination: Surgical Day Care (OP Surgery) PACU nurse assessment reviewed?: Yes Patient Condition:: Good Anesthesia Complications:: None Swallowing reflex intact?: Yes Cyanosis?: No Blood Pressure: 127/73 Pulse Rate: 107 Temperature: 97 F Mental Status: Alert & Oriented Pain level:: 0 Nausea and/or vomitting:: None Intake, IV Amount: 0
[2023-01-24 07:22] VITALS: BP 127/73; PULSE 107; TEMP 36.1
== END 2023-01-23 14:25 | disposition home or self-care (01) ==
PROVIDERS: PCP Internal Medicine; Visit Provider Internal Medicine Pulmonary Disease
PROC: (CPT 31624; principal; 2023-01-23 11:30)
DX: J84.9 Interstitial pulmonary disease, unspecified (principal); J44.9 Chronic obstructive pulmonary disease, unspecified; Z87.891 Personal history of nicotine dependence; Z86.16 Personal history of COVID-19; R91.8 Other nonspecific abnormal finding of lung field; Z79.899 Other long term (current) drug therapy
CPT/HCPCS: 31624; 31628; 71045; 80048; 85025; 87070; 87077; 87102; 87116; 87186; 87205; 87206; 89051

== ENCOUNTER 2023-01-25 13:33 | Inpatient (IN) | payer OTHER, SELFPAY ==
[2023-01-25] VITALS (15 sets, daily range): BP systolic 100–126; BP diastolic 54–68; PULSE 88–113; RESP 18–36; TEMP 36.8–37.3; O2SAT 88–94; BMI 20.9; BMI 21.5
--- NOTE | 2023-01-25 13:42 | XR_ITS ---
FINAL REPORT CLINICAL HISTORY: chest pain COMPARISON: 01/23/2023 FINDINGS: TWO-VIEW CHEST The heart size is normal. The mediastinum is normal. There are persistent bilateral pulmonary opacities, likely bilateral pneumonia. There are small bilateral pleural effusions. There is no pneumothorax. IMPRESSION: Likely bilateral pneumonia with small pleural effusions. Reviewed, Interpreted and Dictated by Eric Oliva III, MD Transcribed by Delmy Barrera Authenticated and [facility]
--- NOTE | 2023-01-25 13:44 | ECG_ITS ---
APPROVED REPORT Exam: Resting ECG HR:104 bpm ECG Measurements Heart Rate 104 AXES NM 127 P 24 QRSd 86 QRS -7 QT 322 T 1 QTc 382 Conclusion SINUS TACHYCARDIA VOLTAGE CRITERIA FOR LVH [MEETS CRITERIA IN ONE OF: R(aVL), S(V1), R(V5), R(V5/V6)+S(V1)] ABNORMAL ECG UNCONFIRMED REPORT Electronically signed by : Zeyad Hendrix MD 01/27/2023 16:24:15
[2023-01-25 14:04] LABS: Chloride 101 mmol/L (98-107); Sodium 137 mmol/L (136-145)
[2023-01-25 14:06] LABS: Blood Urea Nitrogen 12 mg/dl (9-20); Creatinine Clearance Estimated 85 mL/min (50-200); Estimated Glomerular Filt Rate 86 ml/min (>60); GFR (African American) 105 ML/MIN (>60)
[2023-01-25 14:07] LABS: Alanine Aminotransferase 24 U/L (12-78); Albumin Level 3.8 g/dl (3.5-5.0); Albumin/Globulin Ratio 1.1 (1.1-1.8); Alkaline Phosphatase 59 U/L (38-126); Aspartate Amino Transferase 32 U/L (17-59); Bilirubin,Total 0.8 mg/dl (0.2-1.3); Calcium 9.3 mg/dl (8.4-10.2); Carbon Dioxide 25 mmol/L (22.0-30.0); Globulin 3.4 g/dL (1.3-3.2); Glucose 100 mg/dl (74-100); Total Protein,Serum 7.2 g/dl (6.3-8.2)
[2023-01-25 14:08] LABS: Activated Partial Thrombo Time 28.8 seconds (22.8-30.6); INR 1.07 (0.9-1.1); Prothrombin Time 11.5 seconds (10.1-12.5)
[2023-01-25 14:15] LABS: Basophils % 0.3 % (0.1-2.0); Eosinophils # 0.1 K/mm3 (0.0-0.4); Eosinophils % 1.2 % (0.1-12.0); Hematocrit 43.3 % (42.0-52.0); Lymphocytes # 1.1 K/mm3 (0.7-4.5); Lymphocytes % 9.6 % (10-50); Mean Corpuscular HGB Conc 32.3 g/dL (31.8-35.4); Mean Corpuscular Hemoglobin 33.5 pg (27.0-31.2); Mean Corpuscular Volume 103.8 fl (80-94); Mean Platelet Volume 7.2 fl (7.4-10.4); Monocytes # 0.8 K/mm3 (0.1-1.0); Monocytes % 6.7 % (1.7-9.3); Neutrophils # 9.7 K/mm3 (1.8-7.8); Neutrophils % 82.1 % (37.0-80.0); Platelet Count 438 K/mm3 (142-424); Red Blood Count 4.18 M/mm3 (4.60-6.20); Red Cell Distribution Width 13.5 % (11.5-17.5); White Blood Count 11.9 K/mm3 (4.8-10.8)
[2023-01-25 14:16] LABS: NT Pro Brain Natriuretic Pep. 171 pg/mL (0-125)
[2023-01-25 14:19] LABS: Troponin I < 0.01 ng/ml (0.00-0.034)
--- NOTE | 2023-01-25 14:20 | CT_ITS ---
FINAL REPORT TECHNIQUE: Thin section axial CT images of the chest were obtained with contrast. 3D reformatted images were also obtained. This study was performed with techniques to keep radiation doses as low as reasonably achievable (ALARA). Individualized dose reduction techniques using automated exposure control or adjustment of mA and/or kV according to the patient's size were employed. CLINICAL HISTORY: pleuritic pain and shortness of breath COMPARISON: CT chest 12/29/2022 FINDINGS: There is no evidence of pulmonary embolism. There is no evidence of thoracic aortic aneurysm or dissection. There are multiple mildly enlarged mediastinal nodes. There are widespread consolidations and nodules. There are cavitary areas in the bilateral lower lobes, largest on the right measuring up to 48 mm. Infectious or inflammatory process is favored over neoplasm. These may represent mycobacterial/fungal diseases. There are small bilateral pleural effusions. Limited images of the upper abdomen are unremarkable. IMPRESSION: No evidence of pulmonary embolism. Widespread pulmonary opacities and nodules favored inflammatory/infectious process and may represent mycobacterial/fungal disease Reviewed, Interpreted and Dictated by Eric Oliva III, MD Transcribed by Anna Leal Authenticated and [facility]
--- NOTE | 2023-01-25 14:32 | HMH.EDGENADL ---
Discharge Plan Disposition Patient Disposition: Admitted Condition: Serious Chief Complaint: Chest Pain Prescriptions Prescriptions: No Action famotidine 20 mg tablet 20 mg PO HS Label Comments: TAKE ONE TABLET BY MOUTH EVERY DAY AT BEDTIME lorazepam 1 mg tablet 1 mg PO TID Label Comments: TAKE ONE TABLET BY MOUTH THREE TIMES DAILY MAY CAUSE DROWSINESS albuterol sulfate 90 mcg/actuation HFA aerosol inhaler 2 puff INHALATION Q6HP PRN (Reason: Breathing Problems) Label Comments: INHALE 2 PUFFS BY MOUTH EVERY 6 HOURS NEEDED FOR SHORTNESS OF BREATH OR wheezing Stiolto Respimat 2.5-2.5 mcg/actuation mist 2 puff INHALATION DAILY Label Comments: INHALE TWO PUFFS BY MOUTH EVERY DAY Referrals Follow up/Referrals: Santi Chaves MD [Primary Care Provider] - See instructions Clinical Impressions Clinical Impression: Cavitary pneumonia Discharge ED Provider: Jeremi Charles General Adult HPI General Chief complaint: Chest Pain Stated complaint: postop 01/23, rib and right side pain Time Seen by Provider: 01/25/23 14:45 Mode of Arrival: Wheelchair Source of Information: Patient Limitations: No Limitations Description of Symptoms (Recalled from ER Triage Doc. by RN): 57 M presents with bilateral chest wall pain after having a bronchial scope on Monday here. This scope was for lung biopsy r/t complications after COVID19 and multiple lung infections. History of Present Illness HPI narrative: This a 57-year-old white male who had a bronchoscopy 2 days ago presents with bilateral pleuritic chest pain and shortness of breath. Patient states that it is hard for him to get his breath. Denies any hemoptysis but states he is expectorating thick sputum. No nausea vomiting no fevers or chills no headache or lightheadedness Related Data Home Medications Medication Instructions Recorded Confirmed albuterol sulfate 90 mcg/actuation 2 puff inhalation Q6HP PRN 01/25/23 01/25/23 aerosol inhaler Breathing Problems famotidine 20 mg tablet 20 mg PO HS Acid reflux 01/25/23 01/25/23 lorazepam 1 mg tablet 1 mg PO TID Anxiety 01/25/23 01/25/23 tiotropium 2.5 mcg-olodaterol 2.5 2 puff inhalation DAILY Breathing 01/25/23 01/25/23 mcg/actuation mist for inhalation problems (Stiolto Respimat) Allergies Allergy/AdvReac Type Severity Reaction Status Date / Time cephalexin Allergy Severe Anaphalaxis Verified 01/23/23 10:52 [facility] Disclaimer: The information contained in this section may have been updated after the patient was seen, as this information can be updated by other users. Medical History (Updated 01/25/23 @ 16:46 by Jeremi Charles MD) Abnormal computerized axial tomography of chest Allergic rhinitis Anxiety Atypical pneumonia Dyspnea on exertion History of 2019 novel coronavirus disease (COVID-19) History of smoking 30 or more pack years Hodgkins disease IBS (irritable bowel syndrome) ILD (interstitial lung disease) ILD (interstitial lung disease) Immunosuppressed status Legionella infection Multiple lung nodules on CT Multiple lung nodules on CT Pneumonia Pulmonary emphysema Restrictive lung disease Screening for lung cancer Unresolved pneumonia Surgical History H/O nasal septoplasty Hx of lymph node excision Hx of wisdom tooth extraction Family History Other COPD (chronic obstructive pulmonary disease) Emphysema of lung Social History Smoking Status: Former smoker smoking status stop date: 2009 second hand exposure: No alcohol intake: never substance use type: denies use current occupational status: employed Travel in the last 8 weeks: None household members: spouse housing: house current occupation: pet store current occupational exposures/hazards: No caffeine: Yes
[2023-01-25 14:52] LABS: Lactic Acid 0.8 mmol/L (0.7-2.1)
[2023-01-25 15:33] LABS: Coronavirus 19, PCR Not Detected (NotDetected); Influenza A, PCR Not Detected (NotDetected); Influenza B, PCR Not Detected (NotDetected)
--- NOTE | 2023-01-25 16:32 | PC.NURSE ---
GRECIA BEDOYA on phone with Dr. Paez
--- NOTE | 2023-01-25 17:24 | PC.NURSE ---
arrived by w/c from ED
[2023-01-25 17:36] LABS: Troponin I < 0.01 ng/ml (0.00-0.034)
[2023-01-25 18:50] LABS: Adenovirus,PCR Not Detected (NotDetected); Bordetella Pertussis Not Detected (NotDetected); Chlamydophila Pneumoniae, PCR Not Detected (NotDetected); Coronavirus 19, PCR Not Detected (NotDetected); Coronavirus 229E Not Detected (NotDetected); Coronavirus NL63 Not Detected (NotDetected); Coronavirus OC43 Not Detected (NotDetected); Coronovirus HKU1,PCR Not Detected (NotDetected); Human Metapneumovirus Not Detected (NotDetected); Influenza A, PCR Not Detected (NotDetected); Influenza AH1, 2009 Not Detected (NotDetected); Influenza AH1, PCR Not Detected (NotDetected); Influenza AH3,PCR Not Detected (NotDetected); Influenza B, PCR Not Detected (NotDetected); Mycoplasma Pneumoniae, PCR Not Detected (NotDetected); Parainfluenza 1, PCR Not Detected (NotDetected); Parainfluenza 2, PCR Not Detected (NotDetected); Parainfluenza 3, PCR Not Detected (NotDetected); Parainfluenza 4, PCR Not Detected (NotDetected); Respiratory Syncytial Virus Not Detected (NotDetected); Rhinovirus/Enterovirus Not Detected (NotDetected)
--- NOTE | 2023-01-25 19:52 | EXP.HP ---
History of Present Illness *Admission Date: 01/25/23 *Reason for visit:: Shortness of air, chest pain *History of present illness: Mr. Vera is a 57-year-old male with a past medical history of ILD, Anxiety Disorder, history of Hodgkins and history of tobacco use. He presented to [facility] due to continued chest pain associated with shortness of air. He was noted to have undergone a bronchoscopy with BAL on 01/23 by local Geophysical Manager and was to have follow-up, he reported however that due to the pain and shortness of air he came to the ER for evaluation. In the ER, the patient underwent a CTA of the chest that showed no evidence of PE, multiple mildly enlarged mediastinal nodes with widespread consolidations and nodular cavitary areas in the bilateral lower lobes, largest on the right. CBC showed a WBC of 11.9, CMP was unremarkable. Lactic Acid was 0.8, Troponin was <0.01, BNP was 171. The ER Physician spoke with the local Geophysical Manager who will consult on the case. In the ER the patient was placed on Zosyn and nebulizers. He was admitted with initial impression: Cavitary Pneumonia [facility] Disclaimer: The information contained in this section may have been updated after the patient was seen, as this information can be updated by other users. Medical History Abnormal computerized axial tomography of chest Allergic rhinitis Anxiety Atypical pneumonia Dyspnea on exertion History of 2019 novel coronavirus disease (COVID-19) History of smoking 30 or more pack years Hodgkins disease IBS (irritable bowel syndrome) ILD (interstitial lung disease) ILD (interstitial lung disease) Immunosuppressed status Legionella infection Multiple lung nodules on CT Multiple lung nodules on CT Pneumonia Pulmonary emphysema Restrictive lung disease Screening for lung cancer Unresolved pneumonia Surgical History H/O nasal septoplasty Hx of lymph node excision Hx of wisdom tooth extraction Family History Other COPD (chronic obstructive pulmonary disease) Emphysema of lung Social History (Updated 01/25/23 @ 17:44 by Kerline Acosta RN) Smoking Status: Former smoker smoking status stop date: 2009 second hand exposure: No alcohol intake: never substance use type: denies use current occupational status: employed Travel in the last 8 weeks: None household members: spouse housing: house current occupation: pet store current occupational exposures/hazards: No caffeine: Yes Review of Systems Review of Systems Review of systems:: pertinent systems reviewed and negative unless documented below Constitutional Constitutional: Reports system reviewed and no additional complaints, except as documented Eyes Eyes: Reports system reviewed and no additional complaints, except as documented ENT Ears, Nose, Mouth, and Throat: Reports system reviewed and no additional complaints, except as documented *Cardiovascular Cardiovascular: Reports chest pain and Reports dyspnea *Respiratory Respiratory: Reports cough and Reports dyspnea *Gastrointestinal Gastrointestinal: Reports system reviewed and no additional complaints, except as documented *Genitourinary Genitourinary: Reports system reviewed and no additional complaints, except as documented *Musculoskeletal Musculoskeletal: Reports system reviewed and no additional complaints, except as documented Integumentary/Breasts Skin/Breast: Reports system reviewed and no additional complaints, except as documented *Neurologic Neurologic: Reports system reviewed and no additional complaints, except as documented Psychiatric Psychiatric: Reports system reviewed and no additional complaints, except as documented Endocrine Endocrine: Reports system reviewed and no additional complaints, except as documented Hem
[2023-01-25 20:32] LABS: Troponin I < 0.01 ng/ml (0.00-0.034)
--- NOTE | 2023-01-25 22:05 | PC.NURSE ---
Pt states his right sided pain is a 2/10 and only hurts with deep breaths at this time.
[2023-01-26] VITALS (13 sets, daily range): BP systolic 114–157; BP diastolic 71–92; PULSE 90–130; RESP 16–28; TEMP 36.8–37.1; O2SAT 89–93; BMI 21.4
[2023-01-26 06:21] LABS: Basophils % 0.3 % (0.1-2.0); Eosinophils # 0.3 K/mm3 (0.0-0.4); Eosinophils % 2.8 % (0.1-12.0); Hematocrit 39.9 % (42.0-52.0); Hemoglobin 12.9 g/dL (14.1-18.0); Lymphocytes # 1.4 K/mm3 (0.7-4.5); Lymphocytes % 13.8 % (10-50); Mean Corpuscular HGB Conc 32.3 g/dL (31.8-35.4); Mean Corpuscular Hemoglobin 33.1 pg (27.0-31.2); Mean Corpuscular Volume 102.6 fl (80-94); Mean Platelet Volume 7.6 fl (7.4-10.4); Monocytes # 0.8 K/mm3 (0.1-1.0); Monocytes % 7.3 % (1.7-9.3); Neutrophils # 7.8 K/mm3 (1.8-7.8); Neutrophils % 75.8 % (37.0-80.0); Platelet Count 439 K/mm3 (142-424); Red Blood Count 3.89 M/mm3 (4.60-6.20); Red Cell Distribution Width 13.4 % (11.5-17.5); White Blood Count 10.3 K/mm3 (4.8-10.8)
--- NOTE | 2023-01-26 06:21 | PC.NURSE ---
Pt states his pain is now a 2/10 after receiving IV Toradol
--- NOTE | 2023-01-26 06:42 | PC.NURSE ---
Pt has c/o right sided pain 2x stating it is worse with deep breathing and painless with shallow breathing. PRN toradol has been administered and pt stated favorable results. Pt O2 was titrated up to 3L nc due to O2 in upper 80s and 28 rr. Tolerating well with sats >90%. Pt is ambulating to BR with standby assist. Lower lung bases diminished. Call light within reach.
[2023-01-26 06:45] LABS: Chloride 102 mmol/L (98-107)
[2023-01-26 06:46] LABS: Potassium 3.8 mmoL/L (3.5-5.1); Sodium 138 mmol/L (136-145)
[2023-01-26 06:48] LABS: Alanine Aminotransferase 20 U/L (12-78); Aspartate Amino Transferase 27 U/L (17-59); Blood Urea Nitrogen 14 mg/dl (9-20); Creatinine Clearance Estimated 85 mL/min (50-200); Estimated Glomerular Filt Rate 86 ml/min (>60); GFR (African American) 105 ML/MIN (>60)
[2023-01-26 06:49] LABS: Albumin Level 3.4 g/dl (3.5-5.0); Alkaline Phosphatase 66 U/L (38-126); Anion Gap 13.8 mEq/L (5-15); Bilirubin,Total 0.6 mg/dl (0.2-1.3); Calcium 8.7 mg/dl (8.4-10.2); Carbon Dioxide 26 mmol/L (22.0-30.0); Globulin 3.3 g/dL (1.3-3.2); Glucose 106 mg/dl (74-100); Magnesium 1.8 mg/dl (1.6-2.3); Total Protein,Serum 6.7 g/dl (6.3-8.2)
--- NOTE | 2023-01-26 07:16 | HMH.PHAINT1 ---
Pharmacy Intervention Comments: MEDICATION RECONCILIATION COMPLETED USING EXTERNAL FILL HISTORY FROM OUTSIDE PHARMACY
--- NOTE | 2023-01-26 10:07 | XR_ITS ---
FINAL REPORT CLINICAL HISTORY: short of breath COMPARISON: 01/25/2023 FINDINGS: SINGLE-VIEW CHEST The heart size is normal. The mediastinum is normal. There are persistent bilateral pulmonary opacities consistent with bilateral pneumonia.. There is no pneumothorax. IMPRESSION: No significant change. Reviewed, Interpreted and Dictated by Eric Oliva III, MD Transcribed by Delmy Barrera Authenticated and [facility]
--- NOTE | 2023-01-26 10:08 | PC.NURSE ---
COURTESY TECH NOTE; ROUNDED ON PT 0800, PT DENIED NEED FOR ASSISTANCE USING RESTROOM, DRINK, AND NEED TO REPOSITION. PT C/O PAIN ON THE RIGHT SIDE OF CHEST, NURSE NOTIFIED. O2 SATURATION CHECKED AT NURSE REQUEST, 92% ON 3 LITERS NASAL CANULA. CONTINUOS PULSE OX PUT ON AT NURSE REQUEST. CALL LIGHT WITHIN REACH, NO FURTHER REQUESTS AT THIS TIME. Tanya RIBERA, SRNA
--- NOTE | 2023-01-26 11:16 | ECG_ITS ---
APPROVED REPORT Exam: Resting ECG HR:122 bpm ECG Measurements Heart Rate 122 AXES MI 167 P 56 QRSd 92 QRS 48 QT 303 T 8 QTc 376 Conclusion SINUS TACHYCARDIA NONSPECIFIC T-WAVE ABNORMALITY ABNORMAL RHYTHM ECG UNCONFIRMED REPORT Electronically signed by : Zeyad Hendrix MD 01/27/2023 16:20:34
[2023-01-26 12:22] LABS: Troponin I < 0.01 ng/ml (0.00-0.034)
--- NOTE | 2023-01-26 12:35 | PC.NURSE ---
Pt. states his pain is at a 4/10 currently. States he is feeling some better.
--- NOTE | 2023-01-26 13:27 | EXP.PULM.CON ---
History of Present Illness History of present illness: Mr. Vera 57-year-old male following in pulmonary clinic for nonresolving pneumonia status post prior bronchoscopy with transbronchial biopsy negative for any infectious/interstitial lung disease/malignancy, history of stenotrophomonas pneumonia status post completion of treatment antibiotics followed by steroids for organizing pneumonia stable respiratory symptoms up until recently where his repeat CAT scan showed worsening airspace disease. By progressively worsening respiratory distress and oxygen requirements underwent repeat bronchoscopy transbronchial biopsy earlier this week has been stable with no acute episodes of hemoptysis, noted to have worsening chest pain and respiratory distress on 01/25/2023 presented to the ER and was eventually admitted to the hospital for further evaluation. [facility] Disclaimer: The information contained in this section may have been updated after the patient was seen, as this information can be updated by other users. Medical History (Updated 01/26/23 @ 13:28 by Benny Rosado MD) Abnormal computerized axial tomography of chest Acute respiratory failure with hypoxia Allergic rhinitis Anxiety Atypical pneumonia Atypical pneumonia Dyspnea on exertion History of 2019 novel coronavirus disease (COVID-19) History of smoking 30 or more pack years Hodgkins disease IBS (irritable bowel syndrome) ILD (interstitial lung disease) ILD (interstitial lung disease) Immunosuppressed status Legionella infection Multiple lung nodules on CT Multiple lung nodules on CT Pneumonia Pulmonary emphysema Restrictive lung disease Screening for lung cancer Unresolved pneumonia Unresolved pneumonia Surgical History H/O nasal septoplasty Hx of lymph node excision Hx of wisdom tooth extraction Family History Other COPD (chronic obstructive pulmonary disease) Emphysema of lung Social History (Updated 01/25/23 @ 17:44 by Kerline Acosta RN) Smoking Status: Former smoker smoking status stop date: 2009 second hand exposure: No alcohol intake: never substance use type: denies use current occupational status: employed Travel in the last 8 weeks: None household members: spouse housing: house current occupation: pet store current occupational exposures/hazards: No caffeine: Yes Review of Systems Review of Systems Review of systems:: pertinent systems reviewed and negative unless documented below Constitutional Constitutional: Reports system reviewed and no additional complaints, except as documented Eyes Eyes: Reports system reviewed and no additional complaints, except as documented ENT Ears, Nose, Mouth, and Throat: Reports system reviewed and no additional complaints, except as documented *Cardiovascular Cardiovascular: Reports chest pain, Reports chest pain at rest, Reports dyspnea and Reports dyspnea on exertion *Respiratory Respiratory: Reports cough, Reports dyspnea, Reports dyspnea on exertion, Reports excessive phlegm production, Denies hemoptysis, Reports pain on inspiration and Reports pain with cough *Gastrointestinal Gastrointestinal: Reports system reviewed and no additional complaints, except as documented *Genitourinary Genitourinary: Reports system reviewed and no additional complaints, except as documented *Musculoskeletal Musculoskeletal: Reports system reviewed and no additional complaints, except as documented Integumentary/Breasts Skin/Breast: Reports system reviewed and no additional complaints, except as documented *Neurologic Neurologic: Reports system reviewed and no additional complaints, except as documented Psychiatric Psychiatric: Reports system reviewed and no additional complaints, except as documented Endocrine Endocrine: Reports system reviewed and no additional complaints, except as documented Hemat
--- NOTE | 2023-01-26 15:12 | EXP.ACUTE.PN ---
Subjective *Date: 01/26/23 *Time: 15:15 Interval history: Patient stable this morning. However after rounds developed worsening right-sided chest pain. Stable oxygen requirement of 3 L. No nausea or vomiting. Tolerating p.o. intake. Dyspneic with any exertion. Afebrile this morning. Medical Exam Vital signs and Labs for Last 24 Hours: Vital Signs Temp Pulse Pulse Resp BP BP Pulse Ox 01/26/23 12:00 130 H 01/26/23 12:40 123 H 01/26/23 12:40 126 H 01/26/23 12:40 89 L 01/26/23 10:27 91 L 01/26/23 10:18 98 H 01/26/23 10:18 96 H 01/26/23 08:00 105 H 01/26/23 08:00 98.3 F 110 H 22 114/84 91 L 01/26/23 05:55 103 H 01/26/23 05:55 103 H 01/26/23 05:55 91 L 01/26/23 05:49 28 H 01/26/23 04:00 90 01/26/23 04:00 98.7 F 94 H 28 H 114/71 92 L 01/25/23 20:00 100 H 01/25/23 20:00 109 H 91 L 01/26/23 00:00 110 H 01/25/23 23:49 99.1 F 113 H 36 H 110/54 L 90 L 01/25/23 23:05 103 H 01/25/23 23:05 99 H 01/25/23 19:43 99.2 F 109 H 20 126/66 91 L 01/25/23 17:50 100 H 01/25/23 18:12 99.2 F 109 H 18 118/66 93 L 01/25/23 18:06 90 01/25/23 18:06 90 01/25/23 18:06 94 L 01/25/23 17:18 93 H 01/25/23 17:18 98.3 F 93 H 19 102/66 L 01/25/23 16:00 98 H 100/63 L 93 L 01/25/23 15:30 99 H 105/68 L 93 L 01/25/23 15:17 109/64 L Intake and Output 01/25/23 01/26/23 01/26/23 23:59 07:59 15:59 Intake Total 240 / 290 50 / 290 240 / 290 Output Total 0 / 0 Balance 240 / 290 50 / 290 240 / 290 Intake: Intake, Oral Amount 240 / 240 240 / 240 Intake, Total IV Amount 50 / 50 Pipercillin/Tazo 3.375 gm In 0. 50 / 50 9 % Sodium Chloride 50 ml @ 100 mls/hr IV Q6H [facility] Rx#: [id number] Output: Output, Urine Amount 0 / 0 Other: Number of Unmeasured Voids 1 1 Weight 68.181 kg 67.857 kg 67.8 kg Patient Weight 01/26/23 23:59 Weight 67.8 kg Laboratory Results - last 24 hr 01/25/23 15:18: SARS-CoV-2 (PCR) Not detected, Influenza A Untype (PCR) Not detected, Influenza Type B (PCR) Not detected 01/25/23 15:18: Chlamy pneumoniae PCR Not detected, Adenovirus (PCR) Not detected, B. pertussis DNA (PCR) Not detected, Coronavirus OC43 (PCR) Not detected, Coronavirus HKU1 (PCR) Not detected, Coronavirus 229E (PCR) Not detected, SARS-CoV-2 (PCR) Not detected, Coronavirus NL63 (PCR) Not detected, Human Metapneumovir PCR Not detected, Influenza A (H1) PCR Not detected, Influ A (H1N1/09) PCR Not detected, Influenza A (H3) PCR Not detected, Influenza Type A (PCR) Not detected, Influenza Type B (PCR) Not detected, M. pneumoniae (PCR) Not detected, Parainfluenza 1 (PCR) Not detected, Parainfluenza 2 (PCR) Not detected, Parainfluenza 3 (PCR) Not detected, Parainfluenza 4 (PCR) Not detected, RSV (PCR) Not detected, Entero/Rhino (PCR) Not detected 01/25/23 16:48: Troponin I < 0.01 01/25/23 19:55: Troponin I < 0.01 01/26/23 06:10: WBC 10.3, RBC 3.89 L, Hgb 12.9 L, Hct 39.9 L, MCV 102.6 H, MCH 33.1 H, MCHC 32.3, RDW 13.4, Plt Count 439 H, MPV 7.6, Neut % (Auto) 75.8, Lymph % (Auto) 13.8, [place] % (Auto) 7.3, Eos % (Auto) 2.8, Baso % (Auto) 0.3, Neut # (Auto) 7.8, Lymph # (Auto) 1.4, [place] # (Auto) 0.8, Eos # (Auto) 0.3, Baso # (Auto) 0.0 01/26/23 06:10: Sodium 138, Potassium 3.8, Chloride 102, Carbon Dioxide 26, Anion Gap 13.8, BUN 14, Creatinine 0.90, Estimated Creat Clear 85, Estimated GFR 86, Est GFR ( Amer) 105, Glucose 106 H, Calcium 8.7, Magnesium 1.8, Total Bilirubin 0.6, AST 27, ALT 20, Alkaline Phosphatase 66, Total Protein 6.7, Albumin 3.4 L D, Globulin 3.3 H, Albumin/Globulin Ratio 1.0 L 01/26/23 11:25: Troponin I < 0.01 I & O for Labs for Last 24 Hours: Intake & Output 01/23/23 01/24/23 01/25/23 01/26/23 23:59 23:59 23:59 23:59 Intake Total 240 / 290 290 / 290 Output
[2023-01-26 15:15] LABS: Troponin I < 0.01 ng/ml (0.00-0.034)
[2023-01-26 18:24] LABS: Troponin I < 0.01 ng/ml (0.00-0.034)
[2023-01-27] VITALS (14 sets, daily range): BP systolic 115–130; BP diastolic 72–80; PULSE 87–117; RESP 16–22; TEMP 36.4–36.8; O2SAT 91–95; BMI 21.4
--- NOTE | 2023-01-27 06:03 | PC.NURSE ---
Pt has c/o right sided pain 2x and has been medicated per MAR. Pt tolerating 6 Lnc well with sats >90%. Call light within reach.
[2023-01-27 06:27] LABS: Basophils % 0.1 % (0.1-2.0); Eosinophils # 0.1 K/mm3 (0.0-0.4); Eosinophils % 0.9 % (0.1-12.0); Hematocrit 36.3 % (42.0-52.0); Hemoglobin 11.7 g/dL (14.1-18.0); Lymphocytes # 1.3 K/mm3 (0.7-4.5); Lymphocytes % 10.9 % (10-50); Mean Corpuscular HGB Conc 32.4 g/dL (31.8-35.4); Mean Corpuscular Hemoglobin 33.1 pg (27.0-31.2); Mean Corpuscular Volume 102.2 fl (80-94); Mean Platelet Volume 8.1 fl (7.4-10.4); Monocytes # 0.7 K/mm3 (0.1-1.0); Monocytes % 5.6 % (1.7-9.3); Neutrophils # 9.6 K/mm3 (1.8-7.8); Neutrophils % 82.4 % (37.0-80.0); Platelet Count 442 K/mm3 (142-424); Red Blood Count 3.55 M/mm3 (4.60-6.20); Red Cell Distribution Width 13.3 % (11.5-17.5); White Blood Count 11.6 K/mm3 (4.8-10.8)
[2023-01-27 06:29] LABS: Chloride 102 mmol/L (98-107); Potassium 3.8 mmoL/L (3.5-5.1); Sodium 136 mmol/L (136-145)
[2023-01-27 06:32] LABS: Alanine Aminotransferase 16 U/L (12-78); Albumin Level 3.1 g/dl (3.5-5.0); Alkaline Phosphatase 54 U/L (38-126); Anion Gap 11.8 mEq/L (5-15); Aspartate Amino Transferase 19 U/L (17-59); Bilirubin,Total 0.2 mg/dl (0.2-1.3); Blood Urea Nitrogen 12 mg/dl (9-20); Calcium 8.6 mg/dl (8.4-10.2); Carbon Dioxide 26 mmol/L (22.0-30.0); Creatinine Clearance Estimated 109 mL/min (50-200); Estimated Glomerular Filt Rate 115 ml/min (>60); GFR (African American) 140 ML/MIN (>60); Globulin 3.1 g/dL (1.3-3.2); Glucose 140 mg/dl (74-100); Total Protein,Serum 6.2 g/dl (6.3-8.2)
--- NOTE | 2023-01-27 09:31 | EXP.PULM.PN ---
Subjective *Date: 01/27/23 *Time: 11:32 Pulmonology Exam Inpatient Vital signs and Labs for Last 24 Hours: Temp Pulse Resp BP Pulse Ox 97.6 F 101 H 16 116/74 91 L 01/27/23 07:23 01/27/23 07:23 01/27/23 07:23 01/27/23 07:23 01/27/23 07:23 Laboratory Results - last 24 hr 01/26/23 11:25: Troponin I < 0.01 01/26/23 14:30: Troponin I < 0.01 01/26/23 17:15: Troponin I < 0.01 01/27/23 06:14: WBC 11.6 H, RBC 3.55 L, Hgb 11.7 L, Hct 36.3 L, MCV 102.2 H, MCH 33.1 H, MCHC 32.4, RDW 13.3, Plt Count 442 H, MPV 8.1, Neut % (Auto) 82.4 H, Lymph % (Auto) 10.9, [place] % (Auto) 5.6, Eos % (Auto) 0.9, Baso % (Auto) 0.1, Neut # (Auto) 9.6 H, Lymph # (Auto) 1.3, [place] # (Auto) 0.7, Eos # (Auto) 0.1, Baso # (Auto) 0.0 01/27/23 06:14: Sodium 136, Potassium 3.8, Chloride 102, Carbon Dioxide 26, Anion Gap 11.8, BUN 12, Creatinine 0.70 D, Estimated Creat Clear 109, Estimated GFR 115, Est GFR ( Amer) 140 D, Glucose 140 H, Calcium 8.6, Total Bilirubin 0.2, AST 19 D, ALT 16, Alkaline Phosphatase 54, Total Protein 6.2 L, Albumin 3.1 L, Globulin 3.1, Albumin/Globulin Ratio 1.0 L I & O for Labs for Last 24 Hours: Intake & Output 01/24/23 01/25/23 01/26/23 01/27/23 23:59 23:59 23:59 23:59 Intake Total 240 / 290 530 / 580 410 / 410 Output Total 0 / 0 0 / 0 Balance 240 / 290 530 / 580 410 / 410 Weight 150 lb 5 oz 149 lb 7.574 oz 150 lb Microbiology Reports for the Last 24 Hours: Microbiology 01/25/23 17:45 Sputum - Expectorated Sputum Gram Stain - Final 01/25/23 17:45 Sputum - Expectorated Sputum Sputum Culture - Preliminary Constitutional: Present moderate distress Head: Present normocephalic and atraumatic ENT: Present normal exam, normal oropharynx and mucous membranes moist Neck: Present normal inspection and full ROM Respiratory: Present respiratory distress, rhonchi, diminished air movement and able to speak in complete sentences; Absent wheezes Cardiac: Present S1/S2, Tachycardia and radial pulses present GI: Present soft and distention; Absent tenderness or guarding Skin: Present intact; Absent cyanosis or jaundice Neuro: Present alert, awake and oriented x 3 Extremities: Present normal inspection; Absent clubbing or cyanosis Psychiatric: Present normal affect and cooperative Assessment and Plan *Assessment and plan (1) Atypical pneumonia: Status: Acute Category: Medical Code(s): J18.9 - Pneumonia, unspecified organism (2) Unresolved pneumonia: Status: Acute Category: Medical Code(s): J18.9 - Pneumonia, unspecified organism (3) Acute respiratory failure with hypoxia: Status: Acute Category: Medical Code(s): J96.01 - Acute respiratory failure with hypoxia Plan Mr. Vera 57-year-old male following in pulmonary clinic for nonresolving pneumonia status post prior bronchoscopy with transbronchial biopsy negative for any infectious/interstitial lung disease/malignancy, history of stenotrophomonas pneumonia status post completion of treatment antibiotics followed by steroids for organizing pneumonia stable respiratory symptoms up until recently where his repeat CAT scan showed worsening airspace disease. By progressively worsening respiratory distress and oxygen requirements underwent repeat bronchoscopy transbronchial biopsy earlier this week has been stable with no acute episodes of hemoptysis, noted to have worsening chest pain and respiratory distress on 01/25/2023 presented to the ER and was eventually admitted to the hospital for further evaluation. Patient also noted to have increasing oxygen requirements now needing 3 to 4 L to maintain O2 saturation below 90% able. Patient also complains of severe prominent right-sided pleuritic chest pain currently receiving IV Toradol and morphine every 6 hours on as-needed basis. Initial troponins were within normal limits upon admission. Repeat EKG and troponin from this morning did not show any acute changes. Cultures
--- NOTE | 2023-01-27 09:32 | XR_ITS ---
FINAL REPORT CLINICAL HISTORY: Hypoxia COMPARISON: 01/26/2023 FINDINGS: SINGLE-VIEW CHEST The heart size is normal. The mediastinum is normal. There are persistent bilateral pulmonary opacities, likely pneumonia. There is slight improved aeration in the right lung. Small right pleural effusion is identified. There is no pneumothorax. IMPRESSION: Persistent pulmonary opacities, likely pneumonia with small right effusion. Reviewed, Interpreted and Dictated by Eric Oliva III, MD Transcribed by Delmy Barrera Authenticated and . [facility]
--- NOTE | 2023-01-27 09:43 | PC.NURSE ---
COURTESY TECH NOTE; ROUNDED ON PT 0800, ASSISTED PT TO BATHROOM STANDBY ASSIST, ACTIVITY TOLERATED WELL. PT DENIED NEED FOR DRINK AND ASSISTANCE REPOSITIONING. CALL LIGHT WITHIN REACH, NO FURTHER REQUESTS AT THIS TIME BOB POPE
--- NOTE | 2023-01-27 11:29 | EXP.ACUTE.PN ---
Subjective *Date: 01/27/23 *Time: 11:29 Interval history: On 5 L initially this morning on rounds. Tolerating wean by pulmonology at bedside. Afebrile, no nausea or vomiting, chest pain stable. Transitioning to oral regimen today. Medical Exam Vital signs and Labs for Last 24 Hours: Vital Signs Temp Pulse Pulse Resp BP Pulse Ox 01/27/23 10:38 95 01/27/23 10:36 98.2 F 95 H 18 121/75 95 01/27/23 08:00 110 H 01/27/23 04:00 98.0 F 92 H 22 118/72 95 01/27/23 07:23 97.6 F 101 H 16 116/74 91 L 01/27/23 05:58 87 01/27/23 05:58 90 01/27/23 05:58 95 01/27/23 04:00 90 01/27/23 00:00 90 01/27/23 00:00 97.9 F 107 H 20 115/72 95 01/27/23 00:14 104 H 01/27/23 00:14 107 H 01/26/23 20:00 110 H 01/26/23 20:00 103 H 20 93 L 01/26/23 20:00 98.4 F 103 H 20 123/73 93 L 01/26/23 18:17 94 H 01/26/23 18:17 98 H 01/26/23 18:17 90 L 01/26/23 16:00 100 H 01/26/23 15:18 98.5 F 114 H 16 157/92 H 91 L 01/26/23 12:00 130 H 01/26/23 12:40 123 H 01/26/23 12:40 126 H 01/26/23 12:40 89 L Intake and Output 01/26/23 01/27/23 01/27/23 23:59 07:59 15:59 Intake Total 240 / 580 410 / 770 360 / 770 Output Total 0 / 0 0 / 0 0 / 0 Balance 240 / 580 410 / 770 360 / 770 Intake: Intake, Oral Amount 240 / 480 360 / 720 360 / 720 Intake, Total IV Amount 50 / 50 Pipercillin/Tazo 3.375 gm In 0. 50 / 50 9 % Sodium Chloride 50 ml @ 100 mls/hr IV Q6H [facility] Rx#:[id number] Output: Output, Urine Amount 0 / 0 0 / 0 0 / 0 Other: Number of Unmeasured Voids 200 1 1 Weight 68.039 kg Patient Weight 01/27/23 23:59 Weight 68.039 kg Laboratory Results - last 24 hr 01/26/23 11:25: Troponin I < 0.01 01/26/23 14:30: Troponin I < 0.01 01/26/23 17:15: Troponin I < 0.01 01/27/23 06:14: WBC 11.6 H, RBC 3.55 L, Hgb 11.7 L, Hct 36.3 L, MCV 102.2 H, MCH 33.1 H, MCHC 32.4, RDW 13.3, Plt Count 442 H, MPV 8.1, Neut % (Auto) 82.4 H, Lymph % (Auto) 10.9, [place] % (Auto) 5.6, Eos % (Auto) 0.9, Baso % (Auto) 0.1, Neut # (Auto) 9.6 H, Lymph # (Auto) 1.3, [place] # (Auto) 0.7, Eos # (Auto) 0.1, Baso # (Auto) 0.0 01/27/23 06:14: Sodium 136, Potassium 3.8, Chloride 102, Carbon Dioxide 26, Anion Gap 11.8, BUN 12, Creatinine 0.70 D, Estimated Creat Clear 109, Estimated GFR 115, Est GFR ( Amer) 140 D, Glucose 140 H, Calcium 8.6, Total Bilirubin 0.2, AST 19 D, ALT 16, Alkaline Phosphatase 54, Total Protein 6.2 L, Albumin 3.1 L, Globulin 3.1, Albumin/Globulin Ratio 1.0 L I & O for Labs for Last 24 Hours: Intake & Output 01/24/23 01/25/23 01/26/23 01/27/23 23:59 23:59 23:59 23:59 Intake Total 240 / 290 530 / 580 770 / 770 Output Total 0 / 0 0 / 0 Balance 240 / 290 530 / 580 770 / 770 Weight 68.181 kg 67.8 kg 68.039 kg Microbiology Reports for the Last 24 Hours: Microbiology 01/25/23 17:45 Sputum - Expectorated Sputum Gram Stain - Final 01/25/23 17:45 Sputum - Expectorated Sputum Sputum Culture - Preliminary Constitutional: Present mild distress, thin and chronically ill appearing Head: Present atraumatic and normocephalic ENT: Present normal exam Neck: Present normal inspection Respiratory: Present rhonchi, crackles (Diffusely in bilateral lung field) and normal respiratory effort; Absent accessory muscle use or wheezes Cardiac: Present Reg Rate and Rhythm GI: Present soft and normal bowel sounds; Absent distention or tenderness Extremities: Present normal inspection and full ROM Skin: Present intact; Absent erythema Neuro: Present Grossly Intact, alert, awake, oriented x 3 and moves all extremities Assessment and Plan *Assessment and plan (1) Atypical pneumonia: Status: Acute Category: Medical Code(s): J18.9 - Pneumonia, unspecified organism (2) Acute respiratory failure with hypoxia: Status: Acute Category: Medical
--- NOTE | 2023-01-27 13:00 | PC.NURSE ---
COURTESY TECH NOTE; ROUNDED ON PT 1130, PT STATES HE WILL ASSIST WITH BED BATH AFTER MEAL, ENCOURAGED PT TO USE CALL LIGHT IF ASSISTANCE NEEDED, PT DENIED NEED FOR ASSISTANCE WITH RESTROOM, DRINK, OR REPOSITIONING. CALL LIGHT WITHIN REACH, NO FURTHER REQUESTS AT THIS TIME BOB POPE
--- NOTE | 2023-01-27 13:46 | PC.NURSE ---
COURTESY TECH NOTE; ROUNDED ON PT 1155, PT STATED HE WILL BATHE WITH ASSISTANCE FROM HIS LATER TODAY, PT DENIED NEED FOR ASSISTANCE WITH RESTROOM, DRINK, AND NEED TO REPOSITION. CALL LIGHT WITHIN REACH, NO FURTHER REQUESTS AT THIS TIME Tanya RIBERA, BOB
[2023-01-27 16:13] LABS: HIV Screen 4th Generation wRfx Non Reactive (Non Reactive)
--- NOTE | 2023-01-27 17:08 | PC.NURSE ---
Patient weaned from 6LNC to 2.5LNC. VS stable. Lung sounds diminished this evening after lasix dose. Pain reported in right rib area, especially when patient breathes in deep. Pain medication given prn, some relief noted.
[2023-01-28] VITALS (9 sets, daily range): BP systolic 116–154; BP diastolic 68–94; PULSE 91–110; RESP 16–22; TEMP 36.3–37.1; O2SAT 90–94; BMI 21.7
[2023-01-28 06:49] LABS: Basophils % 0.1 % (0.1-2.0); Eosinophils # 0.1 K/mm3 (0.0-0.4); Hematocrit 35.9 % (42.0-52.0); Hemoglobin 11.4 g/dL (14.1-18.0); Lymphocytes # 1.2 K/mm3 (0.7-4.5); Lymphocytes % 9.1 % (10-50); Mean Corpuscular HGB Conc 31.8 g/dL (31.8-35.4); Mean Corpuscular Hemoglobin 32.3 pg (27.0-31.2); Mean Corpuscular Volume 101.8 fl (80-94); Mean Platelet Volume 7.7 fl (7.4-10.4); Monocytes # 0.8 K/mm3 (0.1-1.0); Monocytes % 6.1 % (1.7-9.3); Neutrophils # 11.4 K/mm3 (1.8-7.8); Neutrophils % 83.7 % (37.0-80.0); Platelet Count 479 K/mm3 (142-424); Red Blood Count 3.52 M/mm3 (4.60-6.20); Red Cell Distribution Width 13.4 % (11.5-17.5); White Blood Count 13.6 K/mm3 (4.8-10.8)
[2023-01-28 06:50] LABS: Chloride 99 mmol/L (98-107); Potassium 3.6 mmoL/L (3.5-5.1); Sodium 137 mmol/L (136-145)
[2023-01-28 06:53] LABS: Alanine Aminotransferase 21 U/L (12-78); Albumin Level 3.1 g/dl (3.5-5.0); Alkaline Phosphatase 57 U/L (38-126); Anion Gap 12.6 mEq/L (5-15); Aspartate Amino Transferase 33 U/L (17-59); Blood Urea Nitrogen 13 mg/dl (9-20); Calcium 8.4 mg/dl (8.4-10.2); Carbon Dioxide 29 mmol/L (22.0-30.0); Creatinine Clearance Estimated 111 mL/min (50-200); Estimated Glomerular Filt Rate 115 ml/min (>60); GFR (African American) 140 ML/MIN (>60); Glucose 102 mg/dl (74-100); Total Protein,Serum 6.1 g/dl (6.3-8.2)
[2023-01-28 06:56] LABS: Bilirubin,Total 0.1 mg/dl (0.2-1.3)
--- NOTE | 2023-01-28 09:00 | EXP.PHA.PN ---
Subjective *Date: 01/28/23 *Time: 09:00 Medical Exam Vital signs and Labs for Last 24 Hours: Vital Signs Temp Pulse Pulse Resp BP Pulse Ox 01/28/23 07:11 98.3 F 108 H 16 128/82 90 L 01/28/23 06:00 91 H 01/28/23 06:00 96 H 01/28/23 06:00 94 L 01/28/23 04:00 98.5 F 101 H 18 117/71 94 L 01/28/23 00:49 105 H 01/28/23 00:49 110 H 01/28/23 00:49 91 L 01/28/23 00:00 98.7 F 105 H 22 116/70 92 L 01/27/23 20:00 98.1 F 117 H 22 130/80 94 L 01/27/23 19:24 99 H 01/27/23 19:24 104 H 01/27/23 19:24 94 L 01/27/23 16:00 100 H 01/27/23 12:00 96 H 01/27/23 15:03 97.7 F 104 H 18 129/78 94 L 01/27/23 13:07 104 H 01/27/23 13:07 104 H 01/27/23 13:07 95 01/27/23 10:38 95 01/27/23 10:36 98.2 F 95 H 18 121/75 95 Intake and Output 01/27/23 01/28/23 01/28/23 23:59 07:59 15:59 Intake Total 580 / 1760 410 / 410 Output Total 1100 / 1100 300 / 300 0 / 300 Balance -520 / 660 110 / 110 0 / 110 Intake: Intake, Oral Amount 480 / 1560 360 / 360 Intake, Total IV Amount 100 / 200 50 / 50 Pipercillin/Tazo 3.375 gm In 0. 100 / 200 50 / 50 9 % Sodium Chloride 50 ml @ 100 mls/hr IV Q6H [facility] Rx#:[id number] Output: Output, Urine Amount 1100 / 1100 300 / 300 0 / 300 Other: Number of Unmeasured Voids 1 1 1 Weight 68.81 kg Patient Weight 01/28/23 23:59 Weight 68.81 kg Laboratory Results - last 24 hr 01/26/23 06:10: HIV 1&2 Ag/Ab, 4th Gen Non reactive 01/28/23 06:10: WBC 13.6 H, RBC 3.52 L, Hgb 11.4 L, Hct 35.9 L, MCV 101.8 H, MCH 32.3 H, MCHC 31.8, RDW 13.4, Plt Count 479 H, MPV 7.7, Neut % (Auto) 83.7 H, Lymph % (Auto) 9.1 L, [place] % (Auto) 6.1, Eos % (Auto) 1.0, Baso % (Auto) 0.1, Neut # (Auto) 11.4 H, Lymph # (Auto) 1.2, [place] # (Auto) 0.8, Eos # (Auto) 0.1, Baso # (Auto) 0.0 01/28/23 06:10: Sodium 137, Potassium 3.6, Chloride 99, Carbon Dioxide 29, Anion Gap 12.6, BUN 13, Creatinine 0.70, Estimated Creat Clear 111, Estimated GFR 115, Est GFR ( Amer) 140, Glucose 102 H D, Calcium 8.4, Total Bilirubin 0.1 L, AST 33 D, ALT 21 D, Alkaline Phosphatase 57, Total Protein 6.1 L, Albumin 3.1 L, Globulin 3.0, Albumin/Globulin Ratio 1.0 L I & O for Labs for Last 24 Hours: Intake & Output 01/25/23 01/26/23 01/27/23 01/28/23 23:59 23:59 23:59 23:59 Intake Total 240 / 290 530 / 580 1710 / 1760 410 / 410 Output Total 0 / 0 1100 / 1100 300 / 300 Balance 240 / 290 530 / 580 610 / 660 110 / 110 Weight 68.181 kg 67.8 kg 68.039 kg 68.81 kg Microbiology Reports for the Last 24 Hours: Microbiology 01/25/23 06:28 Nose MRSA Culture - Final Negative 01/25/23 14:27 Blood Blood Culture - Preliminary NO GROWTH AFTER 48 HOURS 01/25/23 14:27 Blood Blood Culture - Preliminary NO GROWTH AFTER 48 HOURS 01/25/23 17:45 Sputum - Expectorated Sputum Gram Stain - Final 01/25/23 17:45 Sputum - Expectorated Sputum Sputum Culture - Preliminary The patient's infection will respond to the chosen ABx?: Yes Is the patient receiving the right drug, dose, and route?: Yes Could a more targeted ABx be ordered?: No (AFEBRILE TODAY, NOTE INDICATES CONTINUING FOR 7 DAYS OR D/C ON LEVAQUIN )
--- NOTE | 2023-01-28 14:24 | EXP.DC.SUM ---
General Admission date:: 01/25/23 Discharge date: 01/28/23 HPI HPI HPI: Mr. Vera is a 57-year-old male with a past medical history of ILD, Anxiety Disorder, history of Hodgkins and history of tobacco use. He presented to [facility] due to continued chest pain associated with shortness of air. He was noted to have undergone a bronchoscopy with BAL on 01/23 by local Nursing Faculty and was to have follow-up, he reported however that due to the pain and shortness of air he came to the ER for evaluation. In the ER, the patient underwent a CTA of the chest that showed no evidence of PE, multiple mildly enlarged mediastinal nodes with widespread consolidations and nodular cavitary areas in the bilateral lower lobes, largest on the right. CBC showed a WBC of 11.9, CMP was unremarkable. Lactic Acid was 0.8, Troponin was <0.01, BNP was 171. The ER Physician spoke with the local Nursing Faculty who will consult on the case. In the ER the patient was placed on Zosyn and nebulizers. He was admitted with initial impression: Cavitary Pneumonia Hospital Course Hospital Course Hospital Course: Patient presented to hospital complaining of chest discomfort and shortness of breath, and diagnosed with atypical pneumonia. Patient seen by pulmonology during hospitalization with bronchoscopy procedure performed 01/23/2023. Culture results followed during hospitalization with no definitive findings at time of hospital discharge. Patient's breathing steadily improved on oxygen, IV antibiotics, prednisone, and itraconazole therapy. Dr. Nunn spoke with traffic rate clerk 01/28/2023, and patient subsequently discharged home on 7 days of Levaquin therapy, itraconazole BID x10 days, prednisone burst x2 additional days. Patient instructed to follow-up with traffic rate clerk 01/30/2023. Patient also advised to follow-up with primary care physician within 1 week of hospital disposition. At time of discharge, patient's oxygen requirement 2.5 L. At baseline, patient requires 2.0 Home oxygen requirement continuously. Exam Data for Last 24 hours Vital signs and Labs for Last 24 Hours: Temp Pulse Resp BP Pulse Ox 98.4 F 93 H 18 154/94 H 93 L 01/28/23 10:52 01/28/23 11:55 01/28/23 10:52 01/28/23 10:52 01/28/23 11:55 Laboratory Results - last 24 hr 01/26/23 06:10: HIV 1&2 Ag/Ab, 4th Gen Non reactive 01/28/23 06:10: WBC 13.6 H, RBC 3.52 L, Hgb 11.4 L, Hct 35.9 L, MCV 101.8 H, MCH 32.3 H, MCHC 31.8, RDW 13.4, Plt Count 479 H, MPV 7.7, Neut % (Auto) 83.7 H, Lymph % (Auto) 9.1 L, [place] % (Auto) 6.1, Eos % (Auto) 1.0, Baso % (Auto) 0.1, Neut # (Auto) 11.4 H, Lymph # (Auto) 1.2, [place] # (Auto) 0.8, Eos # (Auto) 0.1, Baso # (Auto) 0.0 01/28/23 06:10: Sodium 137, Potassium 3.6, Chloride 99, Carbon Dioxide 29, Anion Gap 12.6, BUN 13, Creatinine 0.70, Estimated Creat Clear 111, Estimated GFR 115, Est GFR ( Amer) 140, Glucose 102 H D, Calcium 8.4, Total Bilirubin 0.1 L, AST 33 D, ALT 21 D, Alkaline Phosphatase 57, Total Protein 6.1 L, Albumin 3.1 L, Globulin 3.0, Albumin/Globulin Ratio 1.0 L I & O for Last 24 hours: Intake & Output 01/25/23 01/26/23 01/27/23 01/28/23 23:59 23:59 23:59 23:59 Intake Total 240 / 290 530 / 580 1710 / 1760 650 / 650 Output Total 0 / 0 1100 / 1100 300 / 300 Balance 240 / 290 530 / 580 610 / 660 350 / 350 Weight 68.181 kg 67.8 kg 68.039 kg 68.81 kg Microbiology Reports for the Last 24 Hours: Microbiology 01/25/23 17:45 Sputum - Expectorated Sputum Gram Stain - Final 01/25/23 17:45 Sputum - Expectorated Sputum Sputum Culture - Final Normal Respiratory Lila 01/25/23 06:28 Nose MRSA Culture - Final Negative 01/25/23 14:27 Blood Blood Culture - Preliminary NO GROWTH AFTER 48 HOURS 01/25/23 14:27 Blood Blood Culture - Preliminary NO GROWTH AFTER 48 HOURS Constitutional Constitut
--- NOTE | 2023-01-30 11:30 | SW/DCPLANNER ---
I spoke with patient's regarding home health services. Patient and stated they do not feel like patient needs home health services at this time. stated that patient has everything he needs at home and is set to follow up with Pulm this week.
== END 2023-01-28 15:20 | disposition home health service (06) | DRG 193 ==
LOC: ER 16:46 → 2ND 17:18
PROVIDERS: Internal Medicine Pulmonary Disease; Nurse Practitioner Family; Admitting Provider Internal Medicine Adolescent Medicine; Emergency Provider Emergency Medicine; PCP Internal Medicine; Visit Provider Internal Medicine Adolescent Medicine
DX: J18.9 Pneumonia, unspecified organism (principal); J96.01 Acute respiratory failure with hypoxia; J84.9 Interstitial pulmonary disease, unspecified; Z87.891 Personal history of nicotine dependence; F41.9 Anxiety disorder, unspecified; Z99.81 Dependence on supplemental oxygen
CPT/HCPCS: 36415; 71045; 71046; 71275; 80053; 83605; 83735; 83880; 84484; 85025; 85610; 85730; 86703; 87040; 87070; 87081; 87205; 87581; 87632; 87636; 87798; 93005; 93306; 94640; 94760; 94761; 99285; C9803; G0432; J2543; Q9967; U0003; U0005

== ENCOUNTER 2023-02-03 11:53 | Inpatient (IN) | payer OTHER, SELFPAY ==
[2023-02-03] VITALS (21 sets, daily range): BP systolic 104–130; BP diastolic 54–92; PULSE 93–130; RESP 20–36; TEMP 36.8–37.7; O2SAT 90–96; BMI 21.1; BMI 21.3
--- NOTE | 2023-02-03 12:10 | ECG_ITS ---
APPROVED REPORT Exam: Resting ECG HR:130 bpm ECG Measurements Heart Rate 130 AXES AK 144 P 31 QRSd 87 QRS 77 QT 335 T 22 QTc 412 Conclusion SINUS TACHYCARDIA WITH OCCASIONAL VENTRICULAR PREMATURE COMPLEXES ABNORMAL RHYTHM ECG UNCONFIRMED REPORT Electronically signed by : Zeyad Hendrix MD 02/03/2023 21:26:28
--- NOTE | 2023-02-03 12:56 | CT_ITS ---
FINAL REPORT TECHNIQUE: The patient was injected with IV contrast. Axial images were obtained through the chest in a PE protocol. 3-D reconstruction images were also performed. Individualized dose reduction techniques using automated exposure control or adjustment of the MA and/or KV according to patient's size were employed. CLINICAL HISTORY: persistent tachycardia,h/o lung CA COMPARISON: 01/25/2023 FINDINGS: Mediastinal vasculature is adequately opacified. No pulmonary artery filling defects are identified to suggest PE. There is no aortic dissection. There is moderate mediastinal adenopathy. There are dense left upper and left lower lobe airspace infiltrates. There is extensive right lower lobe consolidation. There is a large right hydro pneumothorax. Pleural separation measures 4 cm, new since previous. There is a large subpulmonic pleural effusion on the right. Limited images of the upper abdomen are unremarkable. IMPRESSION: Bilateral airspace infiltrates. Large right hydropneumothorax, new since previous. No evidence of pulmonary embolism. Findings were reported to Randy Foreman RN on 02/03/2023 at 2:41 p.m. Reviewed, Interpreted and Dictated by West Shanks MD Transcribed by Delmy Barrera Authenticated and [facility]
--- NOTE | 2023-02-03 12:57 | XR_ITS ---
FINAL REPORT CLINICAL HISTORY: soa, CP, h/o lung cancer COMPARISON: 01/27/2023 FINDINGS: SINGLE-VIEW CHEST The heart size is normal. The mediastinum is normal. There are dense bilateral airspace infiltrates, particularly at the periphery of the left lung and right base. There is a pleural-based lucency and density in the right hemithorax, probably related to a combination of pneumothorax and loculated pleural effusion. IMPRESSION: Pleural-based lucency and density in the right hemithorax, probably related to a combination of pneumothorax and loculated right effusion. Please see report of CTA. Reviewed, Interpreted and Dictated by West Shanks MD Transcribed by Delmy Barrera Authenticated and [facility]
--- NOTE | 2023-02-03 13:11 | HMH.EDGENADL ---
Discharge Plan Disposition Patient Disposition: Admitted Condition: Fair Clinical Impressions Clinical Impression: Hydropneumothorax, Pneumonia, Acute hypoxemic respiratory failure Discharge ED Provider: Estevan Gonzales General Adult HPI General Chief complaint: Shortness of Breath/Dyspnea Stated complaint: phy ref, low oxygen Time Seen by Provider: 02/03/23 11:55 Mode of Arrival: Wheelchair Source of Information: Patient and Relative Limitations: No Limitations Description of Symptoms (Recalled from ER Triage Doc. by RN): Presents to ED with complaints of hypoxia during his first oncology appointment with . Patient's family member stated they were going to transfer patient to by POV when they reliazed they did not have enough oxygen to make it there. Upon arrival patient was 88% on 6L NC (Home O2 5L NC). Following for nonresolving atypical pneumonia S/P prior bronchoscopy with transbronchial biopsy. Hx of COPD History of Present Illness HPI narrative: This is a 57-year-old male with history of COPD, recently diagnosed lung cancer not currently on chemotherapy presenting with shortness of breath. Patient was diagnosed with lung cancer about 2 weeks prior to arrival. Was having hypoxemic episodes, so was given outpatient oxygen therapy. Recently increased oxygen therapy about a week prior to arrival to 5 L nasal cannula via concentrator, but has continued to feel short of breath. Was referred to hematology/oncology here [facility] and was seen in clinic today. At clinic, patient 88% on 6 L nasal cannula and clinically short of breath, so sent to ER for further evaluation. Patient complaining of rib pain when he coughs. Cough is nonproductive. Has had fevers and chills responsive to Tylenol. No recent travel, trauma, or any other relevant history. Related Data Home Medications Medication Instructions Recorded Confirmed albuterol sulfate 90 mcg/actuation 2 puff inhalation Q4-6H PRN 01/25/23 02/03/23 aerosol inhaler Shortness Of Breath Or Wheezing famotidine 20 mg tablet 20 mg PO HS Acid reflux 01/25/23 02/03/23 lorazepam 1 mg tablet 1 mg PO TID Anxiety 01/25/23 02/03/23 tiotropium 2.5 mcg-olodaterol 2.5 2 puff inhalation DAILY Breathing 01/25/23 02/03/23 mcg/actuation mist for inhalation problems (Stiolto Respimat) diphenoxylate-atropine 2.5 1 - 2 tab PO QID PRN Diarrhea 01/26/23 02/03/23 mg-0.025 mg tablet ipratropium 0.5 mg-albuterol 3 mg 3 ml inhalation QID PRN Shortness 01/26/23 02/03/23 (2.5 mg base)/3 mL nebulization Of Breath Or Wheezing soln Previous Rx's Medication Instructions Recorded hydrocodone 5 mg-acetaminophen 325 1 tab PO TIDP PRN Severe Pain 01/28/23 mg tablet (Scale Score 7-10) #9 tabs prednisone 20 mg tablet 20 mg PO DAILY 30 days #30 tabs 02/02/23 Allergies Allergy/AdvReac Type Severity Reaction Status Date / Time cephalexin Allergy Severe Anaphalaxis Verified 02/03/23 11:18 shock [facility] Disclaimer: The information contained in this section may have been updated after the patient was seen, as this information can be updated by other users. Medical History Abnormal computerized axial tomography of chest Acute respiratory failure with hypoxia Adenocarcinoma, lung Allergic rhinitis Anxiety Atypical pneumonia Atypical pneumonia Dyspnea on exertion History of 2019 novel coronavirus disease (COVID-19) History of smoking 30 or more pack years Hodgkins disease IBS (irritable bowel syndrome) ILD (interstitial lung disease) ILD (interstitial lung disease) Immunosuppressed status Legionella infection Multiple lung nodules on CT Multiple lung nodules on CT Pneumonia Pulmonary emphysema Restrictive lung disease Screening for lung cancer Unresolved pneumonia Unresolved pneumonia Surgical History H/O nasal septoplasty Hx of
--- NOTE | 2023-02-03 13:14 | PC.NURSE ---
RT at bedside.
[2023-02-03 13:34] LABS: Basophils # 0.1 K/mm3 (0-0.2); Basophils % 0.3 % (0.1-2.0); Chloride 98 mmol/L (98-107); Eosinophils # 0.1 K/mm3 (0.0-0.4); Eosinophils % 0.2 % (0.1-12.0); Hematocrit 44.4 % (42.0-52.0); Hemoglobin 14.3 g/dL (14.1-18.0); Lymphocytes # 1.2 K/mm3 (0.7-4.5); Lymphocytes % 4.3 % (10-50); Mean Corpuscular HGB Conc 32.3 g/dL (31.8-35.4); Mean Corpuscular Hemoglobin 32.1 pg (27.0-31.2); Mean Corpuscular Volume 99.5 fl (80-94); Mean Platelet Volume 8.5 fl (7.4-10.4); Monocytes # 1.3 K/mm3 (0.1-1.0); Monocytes % 4.9 % (1.7-9.3); Neutrophils # 24.3 K/mm3 (1.8-7.8); Neutrophils % 90.3 % (37.0-80.0); Platelet Count 656 K/mm3 (142-424); Red Blood Count 4.46 M/mm3 (4.60-6.20); Red Cell Distribution Width 13.8 % (11.5-17.5); Sodium 129 mmol/L (136-145)
[2023-02-03 13:35] LABS: Potassium 4.1 mmoL/L (3.5-5.1)
[2023-02-03 13:36] LABS: MANUAL DIFFERENTIAL MANUAL DIFFERENTIAL (MANUAL DIFF)
[2023-02-03 13:37] LABS: Alanine Aminotransferase 28 U/L (12-78); Alkaline Phosphatase 96 U/L (38-126); Anion Gap 7.1 mEq/L (5-15); Aspartate Amino Transferase 45 U/L (17-59); Bilirubin,Total 0.6 mg/dl (0.2-1.3); Blood Urea Nitrogen 14 mg/dl (9-20); Carbon Dioxide 28 mmol/L (22.0-30.0); Creatinine Clearance Estimated 94 mL/min (50-200); Estimated Glomerular Filt Rate 99 ml/min (>60); GFR (African American) 120 ML/MIN (>60)
[2023-02-03 13:38] LABS: Albumin Level 3.3 g/dl (3.5-5.0); Albumin/Globulin Ratio 0.8 (1.1-1.8); Globulin 4.1 g/dL (1.3-3.2); Glucose 126 mg/dl (74-100); Total Protein,Serum 7.4 g/dl (6.3-8.2)
--- NOTE | 2023-02-03 13:43 | PC.NURSE ---
COVID SWAB SENT TO LAB
--- NOTE | 2023-02-03 13:45 | PC.NURSE ---
PAGING DR PORRAS TO SPEAK WITH GRECIA BEDOYA
[2023-02-03 13:46] LABS: Coronavirus 19, PCR Not Detected (NotDetected); Influenza A, PCR Not Detected (NotDetected); Influenza B, PCR Not Detected (NotDetected)
--- NOTE | 2023-02-03 13:46 | PC.NURSE ---
DR PORRAS CALLED ER MD WAS SPEAKING WITH ANOTHER DR ON PHONE SO HE SAID TO PAGE HIM AGAIN WHEN HE WAS OFF THE PHONE
[2023-02-03 13:47] LABS: NT Pro Brain Natriuretic Pep. 400 pg/mL (0-125)
[2023-02-03 13:49] LABS: ABG Base Excess 2.1 mmol/L (-2.4-2.3); ABG HCO3 25.3 mmhg (22.0-26.0); ABG Oxygen Saturation 95 % (90-100); ABG PCO2 33.6 mmhg (35.0-45.0); ABG PO2 68.4 mmhg (80-100); ABG TCO2 26.4 mmhg (23-27)
--- NOTE | 2023-02-03 13:49 | EXP.PHA.CONS ---
Pharmacy Consult Date: 02/03/23 Time: 13:49 Referring provider: DR. LEONARDO Reason for Consult:: VANCOMYCIN DOSING Allergies Allergy/AdvReac Type Severity Reaction Status Date / Time cephalexin Allergy Severe Anaphalaxis Verified 02/03/23 11:18 shock Home Medications Medication Instructions Recorded Confirmed Type albuterol sulfate 90 mcg/actuation 2 puff inhalation Q4-6H PRN 01/25/23 02/03/23 History aerosol inhaler Shortness Of Breath Or Wheezing famotidine 20 mg tablet 20 mg PO HS Acid reflux 01/25/23 02/03/23 History lorazepam 1 mg tablet 1 mg PO TID Anxiety 01/25/23 02/03/23 History tiotropium 2.5 mcg-olodaterol 2.5 2 puff inhalation DAILY Breathing 01/25/23 02/03/23 History mcg/actuation mist for inhalation problems (Stiolto Respimat) diphenoxylate-atropine 2.5 1 - 2 tab PO QID PRN Diarrhea 01/26/23 02/03/23 History mg-0.025 mg tablet ipratropium 0.5 mg-albuterol 3 mg 3 ml inhalation QID PRN Shortness 01/26/23 02/03/23 History (2.5 mg base)/3 mL nebulization Of Breath Or Wheezing soln hydrocodone 5 mg-acetaminophen 325 1 tab PO TIDP PRN Severe Pain 01/28/23 02/03/23 Rx mg tablet (Scale Score 7-10) #9 tabs prednisone 20 mg tablet 20 mg PO DAILY 30 days #30 tabs 02/02/23 02/03/23 Rx New Prescriptions to Start Prescriptions: Height: 1.78 m Weight: 66.678 kg Laboratory Results:: Laboratory Results - last 24 hr 02/03/23 12:10: WBC 27.0 H*, RBC 4.46 L, Hgb 14.3, Hct 44.4, MCV 99.5 H, MCH 32.1 H, MCHC 32.3, RDW 13.8, Plt Count 656 H, MPV 8.5, Neut % (Auto) 90.3 H, Lymph % (Auto) 4.3 L, [place] % (Auto) 4.9, Eos % (Auto) 0.2, Baso % (Auto) 0.3, Neut # (Auto) 24.3 H, Lymph # (Auto) 1.2, [place] # (Auto) 1.3 H, Eos # (Auto) 0.1, Baso # (Auto) 0.1 02/03/23 12:10: Sodium 129 L, Potassium 4.1, Chloride 98, Carbon Dioxide 28, Anion Gap 7.1, BUN 14, Creatinine 0.80, Estimated Creat Clear 94, Estimated GFR 99, Est GFR ( Amer) 120, Glucose 126 H, Calcium 9.0, Total Bilirubin 0.6, AST 45, ALT 28, Alkaline Phosphatase 96, NT-Pro-B Natriuret Pep 400 H, Total Protein 7.4, Albumin 3.3 L, Globulin 4.1 H, Albumin/Globulin Ratio 0.8 L Medical History: Medical History (Updated 02/02/23 @ 12:21 by Benny Rosado MD) Abnormal computerized axial tomography of chest Acute respiratory failure with hypoxia Adenocarcinoma, lung Allergic rhinitis Anxiety Atypical pneumonia Atypical pneumonia Dyspnea on exertion History of 2019 novel coronavirus disease (COVID-19) History of smoking 30 or more pack years Hodgkins disease IBS (irritable bowel syndrome) ILD (interstitial lung disease) ILD (interstitial lung disease) Immunosuppressed status Legionella infection Multiple lung nodules on CT Multiple lung nodules on CT Pneumonia Pulmonary emphysema Restrictive lung disease Screening for lung cancer Unresolved pneumonia Unresolved pneumonia Assessment and Plan Assessment and plan all Dx Assessment and Plan for all problems:: Pharmacokinetic dosing service Objective: Patient: Floor: Age: 57 yo Serum creatinine: 0.80 mg/dL Height: 70.0 Inches Weight (kg): 66.7 Assessment: IBW (kg): 73.00 Dosing wt(kg): 66.7 Estimated Creatinine clearance (ml/min): 93.8 CRCL method: Cockcroft and Gault using ibw(default). Drug selected: Vancomycin Loading dose (mg): Vd (liters): 53.4 (factor used: 0.8 L/kg) Luis M (hr-1): 0.082 Half life (hrs): 8.45 CLvanco=?? 4.379 L/hr Recommended dose: 1250 mg Interval: 12 hrs Infusion time (hrs): 2.0 Predicted peak (mcg/mL): 34.5 Predicted trough (mcg/mL): 15.19 Total body weight is being used for vancomycin dosing. Recommendations: Give Vancomycin 1250 mg q 12 hrs with an expected Cpeak of 34.5 mcg/ml and an expected Ctrough of 15.19 mcg/ml AUC 0-24 /CARLOS ALBERTO Data: --------
--- NOTE | 2023-02-03 13:51 | PC.NURSE ---
PAGING DR PORRAS
[2023-02-03 13:53] LABS: Oxygen 100% %; Source L BRACHIAL
[2023-02-03 13:55] LABS: Troponin I < 0.01 ng/ml (0.00-0.034)
--- NOTE | 2023-02-03 14:43 | PC.NURSE ---
Time out for 14 fr chest tube insertion
--- NOTE | 2023-02-03 14:48 | PC.NURSE ---
ER AT BS WITH 3 NURSES PLACING CHEST TUBE
--- NOTE | 2023-02-03 15:34 | PC.NURSE ---
called CM for admission
[2023-02-03 15:35] LABS: Lymphocytes % 7 % (10-50); Monocytes % 3 % (2-9); Neutrophils % 90 % (42-76); Total Cells Counted 100
[2023-02-03 15:39] LABS: Platelet Estimate Moderate Increase; RBC Morphology Normal
--- NOTE | 2023-02-03 15:47 | PC.NURSE ---
Water provided to patient and .
--- NOTE | 2023-02-03 16:54 | XR_ITS ---
PROCEDURE INFORMATION: Exam: XR Chest Exam date and time: 02/03/2023 5:29 PM Age: 57 years old Clinical indication: Device placement; Chest tube; Additional info: Tube placement TECHNIQUE: Imaging protocol: Radiologic exam of the chest. Views: 1 view. COMPARISON: CR XR CHEST PORTABLE 02/03/2023 1:33 PM FINDINGS: Tubes, catheters and devices: There has been interval placement of the right pleural drain with the tip in the right thoracic apex Lungs: Dense consolidation present throughout both lungs with sparing of the right lung apex. Infiltrates appear similar to the study from earlier the same day. Pleural spaces: Persistent at least partially loculated moderate-sized right pleural fluid collection. Questionable small amount of pleural gas in the right lower chest. Heart/Mediastinum: Unremarkable. No cardiomegaly. Bones/joints: Unremarkable. IMPRESSION: Interval placement of right pleural drain with similar appearance of right pleural fluid collection suspected small amount of pleural gas in the right lower chest. Stable severe bilateral pulmonary infiltrates.
--- NOTE | 2023-02-03 16:56 | PC.NURSE ---
arrived to floor by stretcher from ED
[2023-02-03 17:02] LABS: Troponin I < 0.01 ng/ml (0.00-0.034)
--- NOTE | 2023-02-03 17:24 | EXP.HP ---
History of Present Illness *Admission Date: 02/03/23 *Reason for visit:: Readmission with right hydropneumothorax *History of present illness: Really nice patient recently diagnosed with adenocarcinoma of the lung and discharged from hospital by Dr. Nunn 01/28/2023 presents with large right hydropneumothorax after chest tube placement. Patient treated for pneumonia by Dr. Nunn and pulmonary, and ultimately discharged from hospital 01/28/2023 on 7 days of Levaquin, prednisone therapy, and 10 days itraconazole therapy. Patient followed up with pulmonary on Monday after discharge and informed he unfortunately had adenocarcinoma of the lung. Patient and patient's family state that patient's respiratory status has gradually worsened over the past 6 days. Family and patient also states that right rib pain has increased per patient's significant other it got really bad on Monday. Patient followed up with instructional design consultant today, and was noted to be extremely hypoxic during oncology appointment. Patient sent immediately to emergency room with imaging showing large right hydropneumothorax. Right-sided chest tube placed, and patient subsequently admitted for empyema evaluation. Pulmonary fluid cultures/lab work sent during time of chest tube placement. Patient states breathing much better with chest tube drainage. States that chest tube drainage originally greenish-yellowish color, chest tube drainage serosanguineous reddish by time of evaluation by Dr. Nunn on medical floor. [facility] Disclaimer: The information contained in this section may have been updated after the patient was seen, as this information can be updated by other users. Medical History Abnormal computerized axial tomography of chest Acute respiratory failure with hypoxia Adenocarcinoma, lung Allergic rhinitis Anxiety Atypical pneumonia Atypical pneumonia Dyspnea on exertion History of 2019 novel coronavirus disease (COVID-19) History of smoking 30 or more pack years Hodgkins disease IBS (irritable bowel syndrome) ILD (interstitial lung disease) ILD (interstitial lung disease) Immunosuppressed status Legionella infection Multiple lung nodules on CT Multiple lung nodules on CT Pneumonia Pulmonary emphysema Restrictive lung disease Screening for lung cancer Unresolved pneumonia Unresolved pneumonia Surgical History H/O nasal septoplasty Hx of lymph node excision Hx of wisdom tooth extraction Family History Other COPD (chronic obstructive pulmonary disease) Emphysema of lung Social History Smoking Status: Unknown if ever smoked smoking status stop date: 2009 second hand exposure: No alcohol intake: never substance use type: denies use current occupational status: employed Travel in the last 8 weeks: None household members: spouse housing: house current occupation: [employer] current occupational exposures/hazards: No caffeine: Yes Review of Systems Review of Systems Review of systems:: pertinent systems reviewed and negative unless documented below Meds Home Medications and Allergies Home Medications Medication Instructions Recorded Confirmed Type albuterol sulfate 90 mcg/actuation 2 puff inhalation Q4-6H PRN 01/25/23 02/03/23 History aerosol inhaler Shortness Of Breath Or Wheezing famotidine 20 mg tablet 20 mg PO HS Acid reflux 01/25/23 02/03/23 History lorazepam 1 mg tablet 1 mg PO TID Anxiety 01/25/23 02/03/23 History tiotropium 2.5 mcg-olodaterol 2.5 2 puff inhalation DAILY Breathing 01/25/23 02/03/23 History mcg/actuation mist for inhalation problems (Stiolto Respimat) diphenoxylate-atropine 2.5 1 - 2 tab PO QID PRN Diarrhea 01/26/23 02/03/23 History mg-0.025 mg tablet ipratropium 0.5 mg-albuterol 3 mg 3 ml inhal
--- NOTE | 2023-02-03 18:43 | PC.NURSE ---
COURTESY TECH NOTE; ROUNDED ON PT, PT DENIED NEED FOR ASSISTANCE WITH RESTROOM AND NEED TO REPOSITION. CALL LIGHT WITHIN REACH, NO FURTHER REQUESTS AT THIS TIME Tanya RIBERA, BOB
[2023-02-03 19:24] LABS: Troponin I < 0.01 ng/ml (0.00-0.034)
[2023-02-03 23:34] LABS: Appearance,Body Fld. Normal; RBC,Body Fluid < 10 cells/uL (< 10 X 10^3); Source, Body Fld. Pleural Fluid; TNC,Body Fluid 77 cells/uL (< 1000); Volume,Body Fld. 6 mL
[2023-02-03 23:48] LABS: Mononuclear WBCs,Body Fluid 57 %; Polynuclear WBC,Body Fluid 43 %
[2023-02-04] VITALS (19 sets, daily range): BP systolic 108–131; BP diastolic 58–75; PULSE 93–142; RESP 18–35; TEMP 36.7–37.7; O2SAT 87–94; BMI 21.4
--- NOTE | 2023-02-04 04:05 | PC.NURSE ---
RESTING IN BED. HOB UP 40 DEGREES. 02 PER NRB, 02 SATS 90-94%. SATS DROP WITH MINIMAL ACTIVITY SUCH STANDING. CHEST TUBE INTACT, DRAINAGE PINK-STRAW COLOR. CHEST TUBE TO CONTINUOUS LWS. CRACKLES NOTED BILAT, LEFT > RIGHT . NO CREPITUS NOTED. PRODUCTIVE COUGH, THIN CLEAR SECRETIONS, SPECIMEN COLLECTED AND SENT TO LAB. AT 2337 WAS MEDICATED WITH MORPHINE 3 MG IVP FOR PAIN AT RIGHT CHEST WALL, 05/23. MED WAS EFFECTIVE. SIG OTHER AT BEDSIDE.
[2023-02-04 07:29] LABS: Basophils # 0.1 K/mm3 (0-0.2); Basophils % 0.2 % (0.1-2.0); Eosinophils # 0.1 K/mm3 (0.0-0.4); Eosinophils % 0.5 % (0.1-12.0); Lymphocytes # 1.4 K/mm3 (0.7-4.5); Lymphocytes % 5.1 % (10-50); Mean Corpuscular HGB Conc 32.6 g/dL (31.8-35.4); Mean Corpuscular Hemoglobin 32.5 pg (27.0-31.2); Mean Corpuscular Volume 99.6 fl (80-94); Mean Platelet Volume 7.9 fl (7.4-10.4); Monocytes % 11.1 % (1.7-9.3); Neutrophils # 22.6 K/mm3 (1.8-7.8); Neutrophils % 83.1 % (37.0-80.0); Platelet Count 538 K/mm3 (142-424); Red Blood Count 3.72 M/mm3 (4.60-6.20); Red Cell Distribution Width 13.9 % (11.5-17.5); White Blood Count 27.2 K/mm3 (4.8-10.8)
--- NOTE | 2023-02-04 07:31 | XR_ITS ---
PROCEDURE INFORMATION: Exam: XR Chest Exam date and time: 02/04/2023 7:49 AM Age: 57 years old Clinical indication: Shortness of breath; Additional info: Eval resp distress in patient with hydropneumothox TECHNIQUE: Imaging protocol: Radiologic exam of the chest. Views: 1 view. COMPARISON: CR XR CHEST PORTABLE 02/03/2023 5:29 PM FINDINGS: Tubes, catheters and devices: Stable Pigtail catheter terminates in the right apex of the lung.. Lungs: Stable opacities in the left upper lobe and mid lung regions bilaterally and both bases .. Pleural spaces: No definite pneumothorax identified.. Stable moderate right pleural effusion. There may be moderate pleural effusion on the left. Heart/Mediastinum: Unremarkable. No cardiomegaly. Bones/joints: Unremarkable. IMPRESSION: 1. Stable Pigtail catheter terminates in the right apex of the lung.. 2. No definite pneumothorax identified.. 3. Stable moderate right pleural effusion. There may be moderate pleural effusion on the left. 4. Stable opacities in the left upper lobe and mid lung regions bilaterally and both bases .. A
[2023-02-04 07:32] LABS: Chloride 100 mmol/L (98-107)
[2023-02-04 07:33] LABS: Sodium 134 mmol/L (136-145)
[2023-02-04 07:35] LABS: Blood Urea Nitrogen 12 mg/dl (9-20); Creatinine Clearance Estimated 98 mL/min (50-200); Estimated Glomerular Filt Rate 99 ml/min (>60); GFR (African American) 120 ML/MIN (>60)
[2023-02-04 07:36] LABS: Calcium 7.9 mg/dl (8.4-10.2); Carbon Dioxide 23 mmol/L (22.0-30.0); Cholesterol 127 mg/dl (140-200); Glucose 83 mg/dl (74-100); Magnesium 2.1 mg/dl (1.6-2.3); Triglycerides 102 mg/dl (30-150); VLDL Cholesterol 20 mg/dL (0-40)
[2023-02-04 07:37] LABS: Chol/HDL Ratio 7.9 (1-3.5); HDL Cholesterol 16 mg/dl (40-60)
[2023-02-04 07:41] LABS: MANUAL DIFFERENTIAL MANUAL DIFFERENTIAL (MANUAL DIFF)
[2023-02-04 07:47] LABS: Direct LDL Cholesterol 79.84 mg/dL (100-129)
[2023-02-04 08:07] LABS: Lymphocytes % 8 % (10-50); Monocytes % 4 % (2-9); Neutrophils % 88 % (42-76); Platelet Estimate Slight Increase; RBC Morphology Normal; Total Cells Counted 100
[2023-02-04 08:12] LABS: Hemoglobin 12.1 g/dL (14.1-18.0)
--- NOTE | 2023-02-04 11:25 | HMH.ITSTN ---
called and advised nurse Montes that US Thoracentesis can not be done today due to no radiologist in house -- nurse returned call and said he wants ultrasound of chest done advised will have tech call her once I call them in
--- NOTE | 2023-02-04 11:46 | HMH.ITSTN ---
[employer] called the Dr and he said he does not want them called in for this. Possibly will be done Monday on a routine basis
--- NOTE | 2023-02-04 11:53 | HMH.PHAINT1 ---
Pharmacy Intervention Comments: MEDICATION RECONCILIATION COMPLETE USING LIST FROM [facility] (01/28/23) AND EXTERNAL PHARMACY FILL HISTORY.
--- NOTE | 2023-02-04 12:00 | PC.NURSE ---
spoke with pulmonology and hospitalist regarding radiology orders. Radiology will be in this afternoon to do ultrasound per MD.
--- NOTE | 2023-02-04 12:30 | PC.NURSE ---
pt on 50% venti mask. IV lasix given per pulmonology order. pts work of breathing increases when he exerts himself in anyway. notified.
--- NOTE | 2023-02-04 13:09 | PC.NURSE ---
spoke with pulmonology and hospitalist regarding pts work of breathing. Pt placed back on nonrebreather and will be transferred to stepdown.
[2023-02-04 13:22] LABS: ABG Base Excess -1.9 mmol/L (-2.4-2.3); ABG Oxygen Saturation 92 % (90-100); ABG PCO2 31.8 mmhg (35.0-45.0); ABG PH 7.46 mmol/L (7.35-7.45); ABG PO2 59.1 mmhg (80-100)
[2023-02-04 13:24] LABS: Allen's Test Acceptable; Oxygen 50% VM %; Source Left Radial
--- NOTE | 2023-02-04 13:28 | PC.NURSE ---
spoke with pts regarding transfer
--- NOTE | 2023-02-04 15:27 | EXP.PN ---
Subjective *Date: 02/04/23 *Time: 15:27 Interval history: Patient's respiratory status has decreased over the past 24 hours. Patient satting mid 80s on nonrebreather. Patient placed on Vapotherm and now satting in 90s. Patient also transferred to stepdown unit. Exam Data for Last 24 hours Vital signs and Labs for Last 24 Hours: Temp Pulse Resp BP Pulse Ox FiO2 98.8 F 109 H 32 H 108/73 L 94 L 80 02/04/23 15:24 02/04/23 14:30 02/04/23 14:30 02/04/23 14:30 02/04/23 14:30 02/04/23 13:45 Laboratory Results - last 24 hr 02/03/23 12:10: Total Counted 100, Neutrophils % (Manual) 90 H, Lymphocytes % (Manual) 7 L, Monocytes % (Manual) 3, Platelet Estimate Moderate increase, RBC Morphology Normal 02/03/23 15:20: Fluid Source Pleural fluid, Fluid Volume 6, Fluid Appearance Normal, Fluid RBC (Auto) < 10, Fld Tot Nucleated Cell 77, Fld Polynuclear WBCs % 43, Fld Mononuclear WBCs % 57 02/03/23 16:30: Troponin I < 0.01 02/03/23 19:00: Troponin I < 0.01 02/04/23 06:55: WBC 27.2 H*, RBC 3.72 L, Hgb 12.1 L D, Hct 37.0 L, MCV 99.6 H, MCH 32.5 H, MCHC 32.6, RDW 13.9, Plt Count 538 H, MPV 7.9, Neut % (Auto) 83.1 H, Lymph % (Auto) 5.1 L, [place] % (Auto) 11.1 H, Eos % (Auto) 0.5, Baso % (Auto) 0.2, Neut # (Auto) 22.6 H, Lymph # (Auto) 1.4, [place] # (Auto) 3.0 H, Eos # (Auto) 0.1, Baso # (Auto) 0.1, Total Counted 100, Neutrophils % (Manual) 88 H, Lymphocytes % (Manual) 8 L, Monocytes % (Manual) 4, Platelet Estimate Slight increase, RBC Morphology Normal 02/04/23 06:55: Sodium 134 L, Potassium 4.0, Chloride 100, Carbon Dioxide 23, Anion Gap 15.0, BUN 12, Creatinine 0.80, Estimated Creat Clear 98, Estimated GFR 99, Est GFR ( Amer) 120, Glucose 83 D, Calcium 7.9 L, Magnesium 2.1, Triglycerides 102, Cholesterol 127 L, LDL Cholesterol Direct 79.84 L, VLDL Cholesterol 20, HDL Cholesterol 16 L, Cholesterol/HDL Ratio 7.9 H 02/04/23 13:19: Specimen Source Left radial, O2 % 50% vm, ABG pH 7.46 H, ABG pCO2 31.8 L, ABG pO2 59.1 L, ABG HCO3 22.0, ABG Total CO2 23.0, ABG O2 Saturation 92, ABG Base Excess -1.9, Josiah Test Acceptable I & O for Last 24 hours: Intake & Output 02/01/23 02/02/23 02/03/23 02/04/23 23:59 23:59 23:59 23:59 Intake Total 792 / 792 815 / 815 Output Total 320 / 320 2630 / 2630 Balance 472 / 472 -1815 / -1815 Weight 69.456 kg 69.4 kg Microbiology Reports for the Last 24 Hours: Microbiology 02/04/23 03:30 Sputum - Expectorated Sputum Gram Stain - Final 02/03/23 16:30 Pleural Fluid Gram Stain - Final *Routine HEENT Exam Head: Present normocephalic Eye: Present EOMI and normal accommodation ENT: Present mucous membranes moist *Routine Neck Exam Neck: Present supple and full ROM *Routine Respiratory Exam Respiratory: Present accessory muscle use, prolonged expiratory phase, distant breath sounds and diminished air movement *Routine Cardiovascular Exam Cardiovascular: Present tachycardia *Routine Abdominal Exam Abdominal: Present soft and normoactive bowel sounds; Absent guarding or firm *Routine Rectal Exam Comments: deferred *Routine Exam Comments: deferred *Routine Extremities Exam Extremities: Present normal capillary refill *Routine Skin Exam Skin: Present intact and normal turgor *Routine Neurological Exam Neurological: Present alert, oriented X3 and moving all extremities Assessment and Plan *Assessment and plan (1) Hydropneumothorax: Status: Acute Category: Medical Code(s): J94.8 - Other specified pleural conditions (2) Pneumonia: Status: Acute Category: Medical Code(s): J18.9 - Pneumonia, unspecified organism (3) ILD (interstitial lung disease): Status: Chronic Category: Medical Code(s): J84.9 - Interstitial pulmonary disease, unspecified (4) Pulmonary emphysema: Status: Chronic Category: Medical Code(s): J43.9 - Emphysema, unspecified (5) Anxiety disorder: Status: Acute Category: Medical
[2023-02-05] VITALS (21 sets, daily range): BP systolic 94–146; BP diastolic 56–82; PULSE 80–132; RESP 22–30; TEMP 36.9–37.4; O2SAT 87–96; BMI 21.5
--- NOTE | 2023-02-05 | US_ITS ---
PROCEDURE INFORMATION: Exam: US Chest Exam date and time: 02/05/2023 9:52 AM Age: 57 years old Clinical indication: Condition or disease; Other: Chest tube-- eval for loculations; Patient HX: PT has RT chest tube --with not much release-- eval for loculations-- HX of lung cancer TECHNIQUE: Imaging protocol: Real time ultrasound of the chest was performed with image documentation. COMPARISON: CT CHEST WO CON 12/29/2022 3:06 PM FINDINGS: Lungs: Limited evaluation of the lungs is unremarkable. No abnormal B lines are evident. Visualized lung does not appear consolidated. Pleural spaces: 13 x 5 cm oval-shaped complex multiloculated pleural fluid collection right lung base containing numerous internal septations and echoes suggestive of exudate effusion or hemothorax. IMPRESSION: 13 x 5 cm complex right pleural effusion.
[2023-02-05 02:14] LABS: Vancomycin,Trough 9.3 ug/mL (5.0-10.0)
[2023-02-05 07:06] LABS: Chloride 96 mmol/L (98-107)
[2023-02-05 07:07] LABS: Potassium 3.6 mmoL/L (3.5-5.1); Sodium 134 mmol/L (136-145)
[2023-02-05 07:10] LABS: Anion Gap 13.6 mEq/L (5-15); Blood Urea Nitrogen 10 mg/dl (9-20); Calcium 7.8 mg/dl (8.4-10.2); Carbon Dioxide 28 mmol/L (22.0-30.0); Creatinine Clearance Estimated 112 mL/min (50-200); Estimated Glomerular Filt Rate 115 ml/min (>60); GFR (African American) 140 ML/MIN (>60); Glucose 100 mg/dl (74-100)
[2023-02-05 07:15] LABS: Basophils # 0.1 K/mm3 (0-0.2); Basophils % 0.2 % (0.1-2.0); Eosinophils # 0.3 K/mm3 (0.0-0.4); Hematocrit 35.3 % (42.0-52.0); Hemoglobin 11.5 g/dL (14.1-18.0); Lymphocytes # 1.1 K/mm3 (0.7-4.5); Lymphocytes % 4.3 % (10-50); Mean Corpuscular HGB Conc 32.5 g/dL (31.8-35.4); Mean Corpuscular Hemoglobin 32.3 pg (27.0-31.2); Mean Corpuscular Volume 99.6 fl (80-94); Monocytes # 1.9 K/mm3 (0.1-1.0); Monocytes % 7.7 % (1.7-9.3); Neutrophils # 21.2 K/mm3 (1.8-7.8); Neutrophils % 86.8 % (37.0-80.0); Platelet Count 503 K/mm3 (142-424); Red Blood Count 3.54 M/mm3 (4.60-6.20); Red Cell Distribution Width 13.9 % (11.5-17.5); White Blood Count 24.4 K/mm3 (4.8-10.8)
[2023-02-05 07:22] LABS: MANUAL DIFFERENTIAL MANUAL DIFFERENTIAL (MANUAL DIFF)
[2023-02-05 07:30] LABS: Vancomycin,Peak 19.1 ug/ml (11-39)
--- NOTE | 2023-02-05 08:41 | XR_ITS ---
PROCEDURE INFORMATION: Exam: XR Chest Exam date and time: 02/05/2023 9:13 AM Age: 57 years old Clinical indication: Shortness of breath; Additional info: Re-effusion TECHNIQUE: Imaging protocol: Radiologic exam of the chest. Views: 1 view. COMPARISON: CR XR CHEST PORTABLE 02/04/2023 7:49 AM FINDINGS: Tubes, catheters and devices: Pigtail catheter projecting over the right lung apex unchanged. No definite pneumothorax appreciated. Lungs: Diffuse airspace disease with diffuse heterogeneous opacities both lung snyder mildly progressed from previous exam possibly secondary to ARDS or multifocal pneumonia. Pleural spaces: Partially loculated pleural effusions bilaterally projecting over the lateral aspect of the mid to lower lung zones, stable. Heart/Mediastinum: Cardiac silhouette somewhat obscured by pulmonary opacities but does not appear to be significantly enlarged. Bones/joints: Unremarkable for age. IMPRESSION: 1. Diffuse airspace disease mildly worsened from previous examination as discussed above. 2. Partially loculated pleural effusions bilaterally, stable.
--- NOTE | 2023-02-05 09:38 | EXP.PHA.CONS ---
Pharmacy Consult Date: 02/05/23 Time: 09:38 Referring provider: DR. NARVAEZ Reason for Consult:: VANCOMYCIN DOSE ADJUSTMENT PER PK LEVELS OBTAINED Allergies Allergy/AdvReac Type Severity Reaction Status Date / Time cephalexin Allergy Severe Anaphalaxis Verified 02/03/23 11:18 shock Home Medications Medication Instructions Recorded Confirmed Type albuterol sulfate 90 mcg/actuation 2 puff inhalation Q6HP PRN 01/25/23 02/04/23 History aerosol inhaler Shortness Of Breath Or Wheezing famotidine 20 mg tablet 20 mg PO HS Acid reflux 01/25/23 02/03/23 History lorazepam 1 mg tablet 1 mg PO TID Anxiety 01/25/23 02/03/23 History tiotropium 2.5 mcg-olodaterol 2.5 2 puff inhalation DAILY Breathing 01/25/23 02/03/23 History mcg/actuation mist for inhalation problems (Stiolto Respimat) diphenoxylate-atropine 2.5 1 - 2 tab PO QIDP PRN Diarrhea 01/26/23 02/04/23 History mg-0.025 mg tablet ipratropium 0.5 mg-albuterol 3 mg 3 ml inhalation QIDP PRN Shortness 01/26/23 02/04/23 History (2.5 mg base)/3 mL nebulization Of Breath Or Wheezing soln hydrocodone 5 mg-acetaminophen 325 1 tab PO TIDP PRN Severe Pain 01/28/23 02/03/23 Rx mg tablet (Scale Score 7-10) #9 tabs prednisone 20 mg tablet 20 mg PO DAILY Breathing problems 02/03/23 02/03/23 History New Prescriptions to Start Prescriptions: Height: 1.8 m Weight: 69.853 kg Laboratory Results:: Laboratory Results - last 24 hr 02/04/23 13:19: Specimen Source Left radial, O2 % 50% vm, ABG pH 7.46 H, ABG pCO2 31.8 L, ABG pO2 59.1 L, ABG HCO3 22.0, ABG Total CO2 23.0, ABG O2 Saturation 92, ABG Base Excess -1.9, Josiah Test Acceptable 02/05/23 01:10: Vancomycin Trough 9.3 02/05/23 06:49: Vancomycin Peak 19.1 02/05/23 06:49: WBC 24.4 H*, RBC 3.54 L, Hgb 11.5 L, Hct 35.3 L, MCV 99.6 H, MCH 32.3 H, MCHC 32.5, RDW 13.9, Plt Count 503 H, MPV 8.0, Neut % (Auto) 86.8 H, Lymph % (Auto) 4.3 L, [place] % (Auto) 7.7, Eos % (Auto) 1.0, Baso % (Auto) 0.2, Neut # (Auto) 21.2 H, Lymph # (Auto) 1.1, [place] # (Auto) 1.9 H, Eos # (Auto) 0.3, Baso # (Auto) 0.1 02/05/23 06:49: Sodium 134 L, Potassium 3.6, Chloride 96 L, Carbon Dioxide 28, Anion Gap 13.6, BUN 10, Creatinine 0.70, Estimated Creat Clear 112, Estimated GFR 115, Est GFR ( Amer) 140, Glucose 100 D, Calcium 7.8 L, Magnesium 2.0 Medical History: Medical History (Updated 02/03/23 @ 16:50 by Estevan Gonzales MD) Abnormal computerized axial tomography of chest Acute respiratory failure with hypoxia Adenocarcinoma, lung Allergic rhinitis Anxiety Atypical pneumonia Atypical pneumonia Dyspnea on exertion History of 2019 novel coronavirus disease (COVID-19) History of smoking 30 or more pack years Hodgkins disease IBS (irritable bowel syndrome) ILD (interstitial lung disease) ILD (interstitial lung disease) Immunosuppressed status Legionella infection Multiple lung nodules on CT Multiple lung nodules on CT Pneumonia Pulmonary emphysema Restrictive lung disease Screening for lung cancer Unresolved pneumonia Unresolved pneumonia Assessment and Plan Assessment and plan all Dx Assessment and Plan for all problems:: VANCOMYCIN PEAK AND TROUGH LEVELS OBTAINED. VANCOMYCIN PEAK = 19.1 MCG/ML (02/05/23 06:49) VANCOMYCIN TROUGH = 9.3 MCG/ML (02/05/23 01:10) RECOMMENDED DOSE AND PREDICTED LEVELS Based on a selected AUC 0-24 of 500 mg?h/literled Recommended dose: 1369 mg Recommended Interval: 12 hrs Predicted peak: 35.0 mcg/ml. Predicted trough: 12.51 mcg/ml. AUC 0-24 /CARLOS ALBERTO (based on an CARLOS ALBERTO of 1 mg/L): 533.3 ~Target: 400 - 600. New dose: 1500 mg New interval: 12 hrs NEW REGIMEN Predicted values: PEAK: 35.3 mcg/ml TROUGH: 13.25 mcg/ml AUC 0-24 /CARLOS ALBERTO Data: CARLOS ALBERTO 0.5 mcg/mL: AUC/CARLOS ALBERTO: 1095.7 CARLOS ALBERTO 1.0 mcg/mL: AUC/CARLOS ALBERTO: 547.8 CARLOS ALBERTO 1.5 mcg/mL: AUC/CARLOS ALBERTO: 365.2 RECOMMEND CHANGING VANCOMYCIN TO 1500 MG Q12H TO START 02/05/23 AT 14:00
--- NOTE | 2023-02-05 09:39 | HMH.ITSTN ---
Nurse Kerline Bustos called and said Dr Rosado was under the impression that ultrasound of lungs was going to be done yesterday afternoon. I advised I will call my Loss Prevention Analyst in and advise. I called Gin and she is coming in to do the Ultrasound
--- NOTE | 2023-02-05 10:17 | EXP.ACUTE.PN ---
Subjective *Date: 02/05/23 *Time: 10:17 Interval history: Breathing stable still requiring 20 L of oxygen on Vapotherm. Medical Exam Vital signs and Labs for Last 24 Hours: Vital Signs Temp Pulse Pulse Resp BP Pulse Ox FiO2 02/05/23 08:00 93 H 02/05/23 08:00 94 H 22 113/56 L 96 100 02/05/23 07:25 98.8 F 02/05/23 05:50 80 02/05/23 05:50 103 H 02/05/23 05:50 91 L 100 02/05/23 06:00 118 H 26 H 114/70 90 L 100 02/05/23 04:00 102 H 02/05/23 04:00 102 H 02/05/23 04:14 90 L 100 02/05/23 04:00 98.8 F 100 H 25 H 120/63 90 L 100 02/05/23 02:00 99 H 24 113/67 94 L 100 02/04/23 20:00 110 H 02/05/23 01:02 119 H 30 H 98/62 L 94 L 100 02/05/23 00:00 120 H 02/05/23 00:00 120 H 02/05/23 00:00 98.9 F 122 H 26 H 101/66 L 94 L 100 02/04/23 23:44 96 H 02/04/23 23:44 97 H 02/04/23 22:00 119 H 24 111/68 91 L 100 02/04/23 20:00 99.4 F 111 H 26 H 115/66 92 L 100 02/04/23 20:00 27 H 92 L 100 02/04/23 18:32 94 H 02/04/23 18:31 93 H 02/04/23 18:30 100 02/04/23 18:00 99.4 F 111 H 30 H 118/75 91 L 02/04/23 17:00 108 H 30 H 120/73 91 L 02/04/23 16:00 116 H 30 H 115/73 91 L 02/04/23 15:00 111 H 20 121/69 94 L 02/04/23 13:51 115 H 02/04/23 16:00 125 H 02/04/23 15:24 98.8 F 02/04/23 14:30 109 H 32 H 108/73 L 94 L 02/04/23 14:00 142 H 35 H 131/58 L 87 L 02/04/23 13:45 80 02/04/23 11:35 98 H 02/04/23 11:35 101 H 02/04/23 11:35 94 L 02/04/23 11:20 98.1 F 120 H 18 122/69 93 L Intake and Output 02/04/23 02/05/23 02/05/23 23:59 07:59 15:59 Intake Total 1762 / 2577 908 / 908 Output Total 1200 / 3830 635 / 885 250 / 885 Balance 562 / -1253 273 / 23 - 23 Intake: Intake, Oral Amount 240 / 600 0 / 0 Intake, Total IV Amount 1522 / 1976 908 / 908 Lactated Ringers 1000ML 1,000 1172 / 1527 558 / 558 ml @ 75 mls/hr IV .[id number] [facility] Rx#:[id number] Meropenem 1 gm In 0.9 % Sodium 100 / 200 Chloride 100 ml @ 100 mls/hr IV Q8H [facility] Rx#:[id number] Meropenem 1 gm In 0.9 % Sodium 100 / 100 Chloride 100 ml @ 100 mls/hr IV Q8H [facility] Rx#:[id number] Vancomycin/Water For Inj (Peg) 250 / 250 250 / 250 1.25 gm In 250 ml @ 125 mls/hr IV Q12H [facility] Rx#:[id number] Output: Output, Urine Amount 1200 / 3780 625 / 875 250 / 875 Output, Chest Tube Drainage 10 / Amount Right Lateral Chest 10 Other: Number of Unmeasured Voids 0 Weight 69.853 kg 69.853 kg Patient Weight 02/05/23 23:59 Weight 69.853 kg Laboratory Results - last 24 hr 02/04/23 13:19: Specimen Source Left radial, O2 % 50% vm, ABG pH 7.46 H, ABG pCO2 31.8 L, ABG pO2 59.1 L, ABG HCO3 22.0, ABG Total CO2 23.0, ABG O2 Saturation 92, ABG Base Excess -1.9, Josiah Test Acceptable 02/05/23 01:10: Vancomycin Trough 9.3 02/05/23 06:49: Vancomycin Peak 19.1 02/05/23 06:49: WBC 24.4 H*, RBC 3.54 L, Hgb 11.5 L, Hct 35.3 L, MCV 99.6 H, MCH 32.3 H, MCHC 32.5, RDW 13.9, Plt Count 503 H, MPV 8.0, Neut % (Auto) 86.8 H, Lymph % (Auto) 4.3 L, [place] % (Auto) 7.7, Eos % (Auto) 1.0, Baso % (Auto) 0.2, Neut # (Auto) 21.2 H, Lymph # (Auto) 1.1, [place] # (Auto) 1.9 H, Eos # (Auto) 0.3, Baso # (Auto) 0.1 02/05/23 06:49: Sodium 134 L, Potassium 3.6, Chloride 96 L, Carbon Dioxide 28, Anion Gap 13.6, BUN 10, Creatinine 0.70, Estimated Creat Clear 112, Estimated GFR 115, Est GFR ( Amer) 140, Glucose 100 D, Calcium 7.8 L, Magnesium 2.0 I & O for Labs for Last 24 Hours: Intake & Output 02/02/23 02/03/23 02/04/23 02/05/23 23:59 23:59 23:59 23:59 Intake Total 792 / 792 2577 / 2577 908 / 908 Output Total 320 / 320 3830 / 3830 885 / 885 Balance 472 / 472 -1253 / -1253 Weight 69.456 kg 69.4 kg 69.853 kg Ri
[2023-02-05 12:09] LABS: Eosinophils % 1 % (0-3); Lymphocytes % 5 % (10-50); Monocytes % 2 % (2-9); Neutrophils % 92 % (42-76); Platelet Estimate Moderate Increase; RBC Morphology Normal; Total Cells Counted 100
--- NOTE | 2023-02-05 15:55 | PC.NURSE ---
360ml drainage in pleura vac at time of TPA admin. chest tube clamped at 1555
[2023-02-06] VITALS (27 sets, daily range): BP systolic 96–178; BP diastolic 59–102; PULSE 109–149; RESP 18–40; TEMP 36.8–38.8; O2SAT 87–96; BMI 21.4
[2023-02-06 01:06] LABS: Glucose, Body Fluid 80 mg/dL (.); LD, Body Fluid 678 IU/L (.); Protein, Body Fluid 4.5 g/dL (.)
[2023-02-06 06:23] LABS: Chloride 94 mmol/L (98-107); Sodium 130 mmol/L (136-145)
[2023-02-06 06:24] LABS: Potassium 4.1 mmoL/L (3.5-5.1)
[2023-02-06 06:26] LABS: Blood Urea Nitrogen 10 mg/dl (9-20); Creatinine Clearance Estimated 130 mL/min (50-200); Estimated Glomerular Filt Rate 138 ml/min (>60); GFR (African American) 167 ML/MIN (>60)
[2023-02-06 06:27] LABS: Anion Gap 15.1 mEq/L (5-15); Calcium 7.6 mg/dl (8.4-10.2); Carbon Dioxide 25 mmol/L (22.0-30.0); Glucose 102 mg/dl (74-100); Magnesium 1.9 mg/dl (1.6-2.3)
[2023-02-06 06:38] LABS: Basophils # 0.1 K/mm3 (0-0.2); Basophils % 0.3 % (0.1-2.0); Eosinophils # 0.1 K/mm3 (0.0-0.4); Eosinophils % 0.2 % (0.1-12.0); Hematocrit 42.8 % (42.0-52.0); Lymphocytes # 1.1 K/mm3 (0.7-4.5); Lymphocytes % 3.2 % (10-50); Mean Corpuscular HGB Conc 32.2 g/dL (31.8-35.4); Mean Corpuscular Hemoglobin 32.9 pg (27.0-31.2); Mean Corpuscular Volume 102.1 fl (80-94); Mean Platelet Volume 9.2 fl (7.4-10.4); Monocytes # 3.2 K/mm3 (0.1-1.0); Monocytes % 9.5 % (1.7-9.3); Neutrophils # 29.6 K/mm3 (1.8-7.8); Neutrophils % 86.8 % (37.0-80.0); Platelet Count 540 K/mm3 (142-424); Red Blood Count 4.19 M/mm3 (4.60-6.20); White Blood Count 34.1 K/mm3 (4.8-10.8)
[2023-02-06 07:17] LABS: MANUAL DIFFERENTIAL MANUAL DIFFERENTIAL (MANUAL DIFF)
[2023-02-06 07:26] LABS: Hemoglobin 13.8 g/dL (14.1-18.0)
[2023-02-06 08:18] LABS: Lymphocytes % 3 % (10-50); Monocytes % 6 % (2-9); Neutrophils % 91 % (42-76); Total Cells Counted 100
[2023-02-06 08:19] LABS: Anisocytosis 1+; Hypochromasia 1+; Macrocytosis 1+; Platelet Estimate Slight Increase
--- NOTE | 2023-02-06 09:47 | XR_ITS ---
FINAL REPORT TECHNIQUE: Single view chest CLINICAL HISTORY: Hypoxia COMPARISON: 02/05/2023 FINDINGS: A single view of the chest was obtained. The heart and mediastinum are within normal limits. There are persistent bilateral pulmonary opacities worrisome for bilateral pneumonia. Slightly improved aeration seen in the right lung. A pleural catheter is present. There is no pneumothorax. Osseous structures are unremarkable. IMPRESSION: Persistent bilateral opacities worrisome for pneumonia with slight improved aeration in the right lung. Reviewed, Interpreted and Dictated by Eric Oliva III, MD Transcribed by Areli Shepard Authenticated and [facility]
--- NOTE | 2023-02-06 09:48 | EXP.PULM.CON ---
History of Present Illness History of present illness: Mr. 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 [facility] Disclaimer: The information contained in this section may have been updated after the patient was seen, as this information can be updated by other users. Medical History (Updated 02/06/23 @ 11:09 by Benny Rosado MD) Abnormal computerized axial tomography of chest Acute respiratory failure with hypoxia Adenocarcinoma, lung Allergic rhinitis Anxiety Atypical pneumonia Atypical pneumonia Dyspnea on exertion Empyema History of 2019 novel coronavirus disease (COVID-19) History of smoking 30 or more pack years Hodgkins disease IBS (irritable bowel syndrome) ILD (interstitial lung disease) ILD (interstitial lung disease) Immunosuppressed status Legionella infection Multiple lung nodules on CT Multiple lung nodules on CT Pneumonia Pulmonary emphysema Restrictive lung disease Screening for lung cancer Unresolved pneumonia Unresolved pneumonia Surgical History H/O nasal septoplasty Hx of lymph node excision Hx of wisdom tooth extraction Family History Other COPD (chronic obstructive pulmonary disease) Emphysema of lung Social History Smoking Status: Unknown if ever smoked smoking status stop date: 2009 second hand exposure: No alcohol intake: never substance use type: denies use current occupational status: employed Travel in the last 8 weeks: None household members: spouse housing: house current occupation: [employer] current occupational exposures/hazards: No caffeine: Yes Review of Systems Constitutional Constitutional: Reports anorexia, Reports body ache(s) and Reports fatigue Eyes Eyes: Denies eye discharge, Denies dry eyes, Denies irritation and Denies itchy eyes ENT Ears, Nose, Mouth, and Throat: Denies epistaxis, Denies facial pain, Denies lip swelling and Denies throat swelling *Cardiovascular Cardiovascular: Reports dyspnea and Reports dyspnea on exertion *Respiratory Respiratory: Reports chest congestion, Reports cough, Reports dyspnea, Reports dyspnea on exertion, Reports excessive phlegm production, Denies hemoptysis, Reports pain on inspiration, Reports pain with cough and Reports wheezing *Gastrointestinal Gastrointestinal: Denies abdominal pain, Denies belching and Denies cramping *Musculoskeletal Musculoskeletal: Reports back pain, Reports myalgias and Reports other (No small joint swelling or Pain) Psychiatric Psychiatric: Denies homicidal ideation and Denies suicidal ideation Endocrine Endocrine: Reports fatigue and Denies heat intolerance Hematologic/Lymphatic Hematologic/Lymphatic: Denies easy bleeding and Denies lymphadenopathy Allergic/Immunologic Allergic/Immunologic: Denies itchy eyes, Denies lip swelling, Denies throat swelling and Reports wheezing Pulmonology Exam Inpatient Vital signs and Labs for Last 24 Hours: Temp Pulse Resp BP Pulse Ox FiO2 98.6 F 130 H 25 H 135/79 94 L 100 02/06/23 07:23 02/06/23 08:00 02/06/23 06:00 02/06/23 06:00 02/06/23 06:05 02/06/23 06:05 Laboratory Results - last 24 hr 02/03/23 15:20: Fluid Glucose 80, Fluid Total Protein 4.5, Fluid LDH 678 02/05/23 06:49: Total Counted 100, Neutrophils % (Manual) 92 H, Lymphocytes % (Manual) 5 L, Monocytes % (Manual) 2, Eosinophils % (Manual) 1, Platelet Estimate Moderate increase, RBC Morphology Normal 02/06/23 05:45: WBC 34.1 H* D, RBC 4.19 L, Hgb 13.8 L D, Hct 42.8, MCV 102.1 H, MCH 32.9 H, MCHC 32.2, RDW 14.0, Plt Count 540 H, MPV 9.2, Mike
--- NOTE | 2023-02-06 15:51 | EXP.ACUTE.PN ---
Subjective *Date: 02/06/23 *Time: 15:51 Interval history: Not feeling well today continue with requiring high oxygen needs with 35 L Vapotherm/nonrebreather. Medical Exam Vital signs and Labs for Last 24 Hours: Vital Signs Temp Pulse Pulse Resp BP Pulse Ox FiO2 02/06/23 13:19 111 H 02/06/23 13:19 112 H 02/06/23 12:00 130 H 02/06/23 11:16 98.3 F 02/06/23 08:00 130 H 02/06/23 07:23 98.6 F 02/06/23 06:00 118 H 25 H 135/79 92 L 100 02/06/23 06:05 116 H 02/06/23 06:05 118 H 02/06/23 06:05 94 L 100 02/06/23 04:00 130 H 02/06/23 04:00 93 L 100 02/06/23 04:00 98.4 F 131 H 40 H 94 L 100 02/06/23 02:00 133 H 30 H 120/74 87 L 100 02/06/23 00:00 130 H 02/06/23 00:00 101.9 F H 133 H 37 H 136/76 90 L 100 02/05/23 23:13 114 H 02/05/23 23:13 115 H 02/05/23 20:00 130 H 02/05/23 22:00 132 H 30 H 115/65 93 L 100 02/05/23 20:00 99.4 F 126 H 28 H 127/68 89 L 100 02/05/23 20:00 126 H 27 H 88 L 100 02/05/23 16:00 100 02/05/23 18:00 131 H 28 H 138/70 87 L 100 02/05/23 18:42 100 02/05/23 18:41 112 H 02/05/23 18:41 111 H 02/05/23 16:00 105 H 02/05/23 16:00 105 H 26 H 94/59 L 89 L 90 Intake and Output 02/05/23 02/06/23 02/06/23 23:59 07:59 15:59 Intake Total 757 / 1665 844 / 844 0 / 844 Output Total 90 / 2625 1950 / 2350 400 / 2350 Balance 667 / -960 -1106 / -1506 -400 / -1506 Intake: Intake, Oral Amount 360 / 360 444 / 444 0 / 444 Intake, Total IV Amount 397 / 1305 400 / 400 Lactated Ringers 1000ML 1,000 397 / 955 ml @ 75 mls/hr IV .[id number] [facility] Rx#:[id number] Meropenem 1 gm In 0.9 % Sodium 100 / 100 Chloride 100 ml @ 100 mls/hr IV Q8H [facility] Rx#:[id number] Vancomycin/Water For Inj (Peg) 300 / 300 1.5 gm In 300 ml @ 150 mls/hr IV Q12H [facility] Rx#:[id number] Output: Output, Urine Amount 600 / 1000 400 / 1000 Output, Chest Tube Drainage 90 / 100 1350 / 1350 Amount Right Lateral Chest 90 / 100 1350 / 1350 Other: Number of Unmeasured Voids 0 0 Weight 69.4 kg Patient Weight 02/06/23 23:59 Weight 69.4 kg Laboratory Results - last 24 hr 02/03/23 15:20: Fluid Glucose 80, Fluid Total Protein 4.5, Fluid LDH 678 02/06/23 05:45: WBC 34.1 H* D, RBC 4.19 L, Hgb 13.8 L D, Hct 42.8, MCV 102.1 H, MCH 32.9 H, MCHC 32.2, RDW 14.0, Plt Count 540 H, MPV 9.2, Neut % (Auto) 86.8 H, Lymph % (Auto) 3.2 L, [place] % (Auto) 9.5 H, Eos % (Auto) 0.2, Baso % (Auto) 0.3, Neut # (Auto) 29.6 H, Lymph # (Auto) 1.1, [place] # (Auto) 3.2 H, Eos # (Auto) 0.1, Baso # (Auto) 0.1, Total Counted 100, Neutrophils % (Manual) 91 H, Lymphocytes % (Manual) 3 L, Monocytes % (Manual) 6, Platelet Estimate Slight increase, RBC Morphology Not Reportable, Hypochromasia 1+, Anisocytosis 1+, Macrocytosis 1+ 02/06/23 05:45: Sodium 130 L, Potassium 4.1, Chloride 94 L, Carbon Dioxide 25, Anion Gap 15.1 H, BUN 10, Creatinine 0.60 L, Estimated Creat Clear 130, Estimated GFR 138, Est GFR ( Amer) 167, Glucose 102 H, Calcium 7.6 L, Magnesium 1.9 I & O for Labs for Last 24 Hours: Intake & Output 02/03/23 02/04/23 02/05/23 02/06/23 23:59 23:59 23:59 23:59 Intake Total 792 / 792 2577 / 2577 1665 / 1665 844 / 844 Output Total 320 / 320 3830 / 3830 2325 / 2625 2350 / 2350 Balance 472 / 472 -1253 / -1253 -660 / -960 -1506 / -1506 Weight 69.456 kg 69.4 kg 69.853 kg 69.4 kg Microbiology Reports for the Last 24 Hours: Microbiology 02/04/23 03:30 Sputum - Expectorated Sputum Gram Stain - Final 02/04/23 03:30 Sputum - Expectorated Sputum Sputum Culture - Preliminary 02/03/23 16:30 Pleural Fluid Gram Stain - Final 02/03/23 16:30 Pleural Fluid Body Fluid Culture - Preliminary Gram Positive Cocci 02/03/23 13:54 Blood Blood Culture - Prelimi
--- NOTE | 2023-02-06 18:55 | PC.NURSE ---
VS stable, patient remains on vapotherm 35L 100% and non rebreather. 300 output in chest tube before cathflow, 460 out after. Lung sounds exhibit crackles on ascultation. No complaints noted.
--- NOTE | 2023-02-06 20:16 | PC.NURSE ---
Pt has been assigned a bed at [facility], 9th floor, room 138
--- NOTE | 2023-02-06 20:26 | EXP.DC.SUM ---
General Admission date:: 02/03/23 HPI HPI HPI: 57-year-old male with history of COPD, recently diagnosed lung cancer not currently on chemotherapy presenting with shortness of breath.? Patient was diagnosed with lung cancer about 2 weeks prior to arrival.? Was having hypoxemic episodes, so was given outpatient oxygen therapy.? Recently increased oxygen therapy about a week prior to arrival to 5 L nasal cannula via concentrator, but has continued to feel short of breath.? Was referred to hematology/oncology here [facility] and was seen in clinic today 02/03.? At clinic, patient 88% on 6 L nasal cannula and clinically short of breath, so sent to ER for further evaluation.? Patient complaining of rib pain when he coughs.? Cough is nonproductive.? Has had fevers and chills responsive to Tylenol.? No recent travel, trauma, or any other relevant history. Upon ED workup imaging showed large right hydropneumothorax.? Right-sided chest tube placed, and patient subsequently admitted for empyema evaluation.? Pulmonary fluid cultures/lab work sent during time of chest tube placement.?Patient was admitted to the hospitalist team and had a pulmonary consult placed. Right chest tube in place and pt on nonrebreather upon arrival to floor. Hospital Course Hospital Course Hospital Course: -Mr. 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 Recently diagnosed with adenocarcinoma of the lung and discharged from hospital by Dr. Nunn 01/28/2023. Patient treated for pneumonia by Dr. Nunn and pulmonary, and ultimately discharged from hospital 01/28/2023 on 7 days of Levaquin, prednisone therapy, and 10 days itraconazole therapy. -Patient followed up with pulmonary on 02/01 after discharge and informed he unfortunately had adenocarcinoma of the lung. Patient and patient's family state that patient's respiratory status has gradually worsened over the past 6 days. Family and patient also states that right rib pain has increased per patient's significant other it got really bad on Monday. -Patient followed up with oncology pharmacist on 02/03, and was noted to be extremely hypoxic during oncology appointment. Patient sent immediately to emergency room with imaging showing large right hydropneumothorax. Right-sided chest tube placed, and patient subsequently admitted for empyema evaluation. Pulmonary fluid cultures/lab work sent during time of chest tube placement. Patient admitted to hospitalist team for medical management with pulmonary consult. -02/04 Patient's respiratory status has decreased over the past 24 hours.? Patient satting mid 80s on nonrebreather.? Patient placed on Vapotherm and now satting in 90s.? Patient also transferred to stepdown unit. -02/05 resp status continue to worsen. Pt on 35 L vapotherm and a non rebreather. Given tPA through chest tube with great output of serous return. -02/06 Possible micro malignant emboli patient will need to be transferred.? [facility] accepted the patient. Admission discussed with with pulmonary function technician by Dr. Shoemaker. Pleural fluid + for gram positive cocci. called @ 2029 with bed available for patient transfer. Exam Data for Last 24 hours Vital signs and Labs for Last 24 Hours: Temp Pulse Resp BP Pulse Ox FiO2 98.5 F 118 H 25 H 111/69 95 100 02/06/23 20:00 02/06/23 20:00 02/06/23 20:00 02/06/23 20:00 02/06/23 20:00 02/06/23 17:55 Laboratory Results - last 24 hr 02/03/23 15:20: Fluid Glucose 80, Fluid Total Protein 4.5, Fluid LDH 678 02/06/23 05:45: WBC 34.1 H* D, RBC 4.19 L, Hgb 13.8 L D, Hct 42.8, MCV 102.1 H, MCH 32.9 H, MCHC 32.2, RDW 14.0, Plt Count 540 H, MPV 9.2, Neut % (Auto) 86.
--- NOTE | 2023-02-06 20:28 | PC.NURSE ---
Report called to Jacquelyn IQBAL at ICU. Pt being accepted by [facility]
--- NOTE | 2023-02-06 21:09 | PC.NURSE ---
Anesthesia paged at this time. Call back received from PRADIP Gonzalez at [phone]
--- NOTE | 2023-02-06 21:41 | PC.NURSE ---
Verified Propofol and Fentanyl mixing dosgaes per [facility] pharmacistPhillip at this time.
--- NOTE | 2023-02-06 22:22 | PC.NURSE ---
Contacted [employer] for flight transfer to at 1802. [place] accepts pending weather in 45 min.
--- NOTE | 2023-02-06 22:39 | XR_ITS ---
PROCEDURE INFORMATION: Exam: XR Chest Exam date and time: 02/06/2023 10:20 PM Age: 57 years old Clinical indication: Device placement; Ett placement (vent status); Patient HX: Et tube & chest tube; Additional info: Intubation TECHNIQUE: Imaging protocol: Radiologic exam of the chest. Views: 1 view. COMPARISON: CR XR CHEST PORTABLE 02/06/2023 10:37 AM FINDINGS: Tubes, catheters and devices: Endotracheal tube in good positioning above the marly. Right-sided chest tube in place. Lungs: Extensive bilateral airspace disease concerning for severe pneumonia. Pleural spaces: No definite pneumothorax. Small bilateral pleural effusions. Heart/Mediastinum: Unremarkable. No cardiomegaly. Bones/joints: Unremarkable. IMPRESSION: 1. Endotracheal tube in good positioning above the marly. Right-sided chest tube in place. 2. No definite pneumothorax. 3. Extensive bilateral airspace disease concerning for severe pneumonia. 4. Small bilateral pleural effusions.
[2023-02-06 22:49] LABS: ABG Base Excess 1.1 mmol/L (-2.4-2.3); ABG HCO3 27.8 mmhg (22.0-26.0); ABG Oxygen Saturation 99 % (90-100); ABG PH 7.28 mmol/L (7.35-7.45); ABG PO2 173.2 mmhg (80-100); ABG TCO2 29.7 mmhg (23-27)
[2023-02-06 22:51] LABS: Allen's Test Patient Unable; Oxygen 100 %; PEEP 5; Tidal Volume 450; Vent Rate 18
[2023-02-06 22:52] LABS: ABG PCO2 60.2 mmhg (35.0-45.0); Source Right Radial
--- NOTE | 2023-02-06 23:12 | P.EN_ITS ---
[facility] transfer physician requesting pt being intubated prior to transfer. The patient was explained risks and benefits of procedure. Pt and agreed to being intubated. TC OPERATOR, Pietro, called in to intubated. Thank you Pietro for coming in and doing procedure. Blood gas obtained after intubating pt. [facility] called with results. OK pt transfer by [facility] to via Dr. Jerry and Dr. Ocasio @ 1510
--- NOTE | 2023-02-06 23:19 | PC.NURSE ---
[place] [facility] with [employer] contacted and they stated a 24 min ETA.
--- NOTE | 2023-02-06 23:41 | PC.NURSE ---
Called [facility] RASHEED Valladares and updated on pt status at this time.
[2023-02-07] VITALS: BP 105/70; PULSE 126; RESP 22; O2SAT 91
--- NOTE | 2023-02-07 00:49 | PC.NURSE ---
pt left floor with flight crew at this time
[2023-02-07 00:50] VITALS: BP 110/65; PULSE 128; RESP 20; TEMP 37.2; O2SAT 92
--- NOTE | 2023-02-07 02:04 | PC.NURSE ---
2154 AnesthesiologistPietro in room, pt ageeable to intubation, verbalizes he understands the risks of the procedure. RT in room. Crash cart, Ambu bag, suction set up x2 at bedside. 2203 Pt receives 200 propofol, 50 Rocoronium, 180 Succinylcholine per anesthesiologist. Pt intubated with a 7.5 ETT, 24cm at the teeth. Vent settings : TV 500 FIo2 100% PEEP 5 RR 18 2207 Propofol started at 5mcg/kg/min. Fentanyl started at 25mcg/hr.
--- NOTE | 2023-02-07 02:11 | PC.NURSE ---
Propofol and fentanyl gtt titrated as follows: 2228 Prop titrated up to 10mcg/kg/min. Hospitalist made aware of pt HR in 150s. NSR. CPOT 4 2251 Prop titrated up to 20mcg/kg/min. Fentanyl titrated up to 50mcg/hr. CPOT 3 2300 Prop titrated up to 30mcg/kg/min. Fentanyl titrated up to 75mcg/hr. CPOT 5 2310 Prop titrated up to 40mcg/kg/min. Fentanyl titrated up to 100mcg/hr. CPOT 4 2320 Prop titrated up to 50mcg/kg/min. Fentanyl titrated up to 125mcg/hr. CPOT 5 2330 12.5mcg Fentanyl push given CPOT 3 2345 12.5mcg Fentanyl push given CPOT 3
[2023-02-07 18:19] LABS: QuantiFERON-TB Gold Plus Negative (Negative)
[2023-02-08 16:45] LABS: Legionella pneumophila Urinary Negative (Negative)
== END 2023-02-07 00:50 | disposition short-term general hospital (02) | DRG 208 ==
LOC: ER 12:13 → 2ND 15:51
PROVIDERS: Admitting Provider Internal Medicine; Emergency Provider Emergency Medicine; PCP Internal Medicine; Visit Provider Internal Medicine
DX: J15.6 Pneumonia due to other Gram-negative bacteria (principal); J96.01 Acute respiratory failure with hypoxia; J86.9 Pyothorax without fistula; C34.90 Malignant neoplasm of unspecified part of unspecified bronchus or lung; J94.8 Other specified pleural conditions; J84.9 Interstitial pulmonary disease, unspecified; Z85.118 Personal history of other malignant neoplasm of bronchus and lung; Z99.81 Dependence on supplemental oxygen; J43.9 Emphysema, unspecified; Z86.16 Personal history of COVID-19; F41.9 Anxiety disorder, unspecified; F39 Unspecified mood [affective] disorder
CPT/HCPCS: 32551 ×2; 31500; 94002; 36415; 71045; 71275; 76604; 80048; 80053; 80061; 80202; 82803; 82945; 83615; 83735; 83880; 84155; 84484; 85007; 85025; 86480; 87040; 87070; 87077; 87186; 87205; 87636; 89051; 93005; 94640; 99291; C9803; J2185; J2704; J3475; J7639; Q9967; U0003; U0005